=== PATIENT | female | born 1965 | race Two or more races ===

== ENCOUNTER 2019-04-09 15:47 | Inpatient (IN) | payer BC, OTHER ==
--- NOTE | 2019-04-09 15:55 | PDOC ---
Rapid Medical Evaluation Time Seen by Provider: 04/09/19 15:49 Medical Evaluation: Allergies Allergy/AdvReac Type Severity Reaction Status Date / Time No Known Allergies Allergy Verified 07/04/16 10:11 04/09/19 15:49 I have performed a brief in-person evaluation of this patient. The patient presents with a chief complaint of: Sent in by PMD for BP of 190/ 110 in office. Stopped taking rx meds > 1 yr ago on her own. Has been using home remedies instead. Given a dose of ? amlodipine in office today. Pt states she was sent in for CT scan of her head though reasons unclear as pt denies DANIELSON, dizziness, visual changes, focal weakness, CP or SOB. Only reports mild R ear clogging sensation on and off Pertinent physical exam findings:BP 230/130, pt well ezequiel and in NAD w/ no focal deficits I have ordered the following: labs r/o EOD, will defer any neuroimaging to ED provider The patient will proceed to the ED for further evaluation. Discharge Disposition - Diagnosis Elevated blood pressure reading - Referrals - Patient Instructions - Post Discharge Activity
--- NOTE | 2019-04-09 16:25 | PDOC ---
History of Present Illness - General Chief Complaint: Blood Pressure Problem Stated Complaint: PCP REFERRED Time Seen by Provider: 04/09/19 15:49 History Source: Patient Exam Limitations: No Limitations - History of Present Illness Initial Comments: 04/09/19 16:09 [id number] with h/o HTN who was referred to the ED from her PCP for a BP of 190/110 in the outpatient clinic today. The patient states that she stopped taking her home medications over a year ago because she did not want to be taking a pill for the rest of her life, and she wanted to try holistic methods instead. She notes mild right ear discomfort like pressure/pain today for the past 2 hours. She had a similar left sided ear pain a week ago which was accompanied by a head -spinning dizziness which resolved spontaneously. She does not get headaches or vertigo like this normally. Her PCP ([place]) gave amlodipine in the office per the patient's report and also sent a prescription to the patient's pharmacy , but also wanted her to come into the ED for evaluation of her symptoms in the setting of the BP. The patient denies f/c/n/v/d/c, chest pain, palpitations, SOB , n/t/w focally, vision changes, or other symptoms. Past History - Past Medical History Allergies/Adverse Reactions: Allergies Allergy/AdvReac Type Severity Reaction Status Date / Time No Known Allergies Allergy Verified 04/09/19 15:52 Home Medications: Ambulatory Orders NK [No Known Home Medication] 04/09/19 HTN: Yes - Suicide/Smoking/Psychosocial Hx Smoking History: Never smoked Hx Alcohol Use: No Drug/Substance Use Hx: No Review of Systems - Review of Systems Able to Perform ROS?: Yes Comments:: 04/09/19 16:25 GEN: no fever, chills, malaise, generalized weakness, or weight change HEENT: ear pain, no sore throat, vision change, or eye pain CV: no chest pain, palpitations, lightheadedness, syncope, or edema RESP: no cough, wheezing, or SOB GI: no abdominal pain, nausea, vomiting, diarrhea, constipation, or white/black/ bloody stool : no dysuria, hematuria, incontinence, retention, bleeding, or discharge MSK: no neck/back pain, muscle weakness/pain, or joint swelling/pain NEURO: headache, vertigo, no seizure, numbness, tingling, or focal weakness PSYCH: no substance use, no behavior change SKIN: no jaundice, no rash ROS otherwise negative except as noted in HPI *Physical Exam - Vital Signs Last Vital Signs Temp Pulse Resp BP Pulse Ox 107 H 18 231/130 H 100 04/09/19 15:54 04/09/19 15:54 04/09/19 15:54 04/09/19 15:54 - Physical Exam Comments: 04/09/19 16:36 GENERAL: nontoxic and well-appearing, A/Ox4, no distress, answers questions appropriately, comfortable appearing, pleasant HEENT: PERRLA, EOMI, moist mucous membranes, EACs and TMs clear without bulging NECK/BACK: no midline ttp, no spinal stepoff or deformity, no hematoma, full ROM , neck supple CARDIOVASCULAR: regular rate/rhythm, normal S1S2, no MGR, strong peripheral pulses, capillary refill <2 seconds, extremities wwp, no edema LUNGS/RESPIRATORY: no respiratory distress, CTAB GI/ABDOMEN: symmetric qwdh-to-svda, normoactive BS, soft, no ttp, no midline pulsatile masses : no CVA tenderness EXTREMITIES: no muscle atrophy, no acute deformity, no edema SKIN: warm and dry, no pallor, no jaundice, no rash, no bruising, no skin breakdown, no cuts, no lesions NEUROLOGICAL: GCS 15, CN II-XII grossly intact, 5/5 strength proximally and distally, no facial droop, seen walking into exam room with normal gait ED Treatment Course - LABORATORY CBC & Chemistry Diagram: 04/09/19 16:21 04/09/19 16:21 Medical Decision Making - Medical Decision Making 04/09/19 16:45 53YOF with h/o HTN non-adherent to Rx who p/w DANIELSON and high blood pressure. Initial Vital Signs Pulse Resp BP Pulse Ox 107 H 18 231/130 H 100 04/09/19 15:54 04/09/19 15:54 04/09/19 15:54 04/09/19 15:54 Exam: As noted in Physical Exam section. DDX IBNLT: primary (essential) HTN, renal disease, medications (e.g. OCPs, NSAIDs, antidepressants, steroids), hypercortisolism ([place] syndrome), primary hyperaldosteronism ([place] syndrome), pheochromocytoma, hyper/ hypothyroidism, hyperparathyroidism, coarctation of aorta, obstructive sleep apnea, etc. Main emergency concern is to r/o hypertensive emergency. W/U ordered: CBC, CMP, trop, UA, EKG, HCT TX ordered: for HTN emergency, use IV nitroprusside, labetalol, or nicardipine Patient's DANIELSON may be a manifestation of hypertensive emergency and therefore she needs HCT. EKG: Reviewed; results as noted in ECG Review section. CT/HEAD CT WITHOUT CONTRAST Cranial CT without contrast Clinical information: headache, high blood pressure Multiplanar imaging was performed. Intravenous contrast was not administered. No prior imaging studies are available at this facility for direct comparison. No intraparenchymal hemorrhage is seen. There is no CT evidence of acute subarachnoid hemorrhage. Correlate clinically. No extra-axial fluid collection is noted. There is no obvious mass lesion on noncontrast imaging. Mild nonspecific bilateral frontoparietal subcortical and periventricular white matter hypodensity which could be on the basis of etiologies such as chronic microvascular ischemic changes and/or hypertensive encephalopathy. Age-appropriate involutional changes are seen with minimal ventricular dilatation. The calvarium appears intact. The partially imaged paranasal sinuses demonstrate no opacification. Impression: Mild nonspecific periventricular and subcortical white matter low-attenuation is noted which may be on the basis of chronic microvascular ischemic changes and/or hypertensive encephalopathy. 04/09/19 17:44 Repeat BP 256/134. Laboratory Tests 04/09/19 04/09/19 04/09/19 14:40 16:21 16:21 WBC 7.8 RBC 5.15 Hgb 12.8 Hct 38.9 MCV 75.4 L MCH 24.8 L MCHC 32.9 RDW 16.2 H Plt Count 193 MPV 10.4 Absolute Neuts (auto) 5.4 Neutrophils % 70.0 Lymphocytes % 21.2 Monocytes % 6.4 Eosinophils % 1.6 Basophils % 0.8 Nucleated RBC % 0 Sodium 142 Potassium 3.7 Chloride 105 Carbon Dioxide 31 Anion Gap 6 L BUN 12.0 Creatinine 1.3 Est GFR (CKD-EPI)AfAm 54.62 Est GFR (CKD-EPI)NonAf 47.13 Random Glucose 132 H Calcium 9.0 Total Bilirubin 0.3 AST 22 ALT 12 L Alkaline Phosphatase 121 H Troponin I < 0.02 Total Protein 7.6 Albumin 3.8 Urine Color Yellow Urine Appearance Clear Urine pH 7.0 Ur Specific [place] 1.002 L Urine Protein Negative Urine Glucose (UA) Negative Urine Ketones Negative Urine Blood Negative Urine Nitrite Negative Urine Bilirubin Negative Urine Urobilinogen 0.2 Ur Leukocyte Esterase Negative The Pt is unsafe for discharge at this time. They require further hospital observation, workup, and treatment. Microblog sent to [facility] for admission. Blank Decision to Admit order is placed per ED protocol. Consults ordered to Drs. Arora and Mireya. Spoke with Dr. Gomes and ordered MRI brain without contrast at his request. Spoke with ICU (Trista Stuart) and she is speaking with Dr. Arora. Patient will be going to ICU for nicardipine drip. 04/09/19 19:37 I spoke with Baron Bruno; patient admitted to Dr. Posadas. *DC/Admit/Observation/Transfer Diagnosis at time of Disposition: Hypertensive emergency - Discharge Dispostion Condition at time of disposition: Guarded Decision to Admit order: Yes - Referrals - Patient Instructions - Post Discharge Activity
[2019-04-09 16:36] LABS: BASO % 0.8 % (0-2.0); EOS % 1.6 % (0-4.5); HEMATOCRIT 38.9 % (32.4-45.2); HEMOGLOBIN 12.8 GM/dL (10.7-15.3); LYMPH % 21.2 % (8-40); MCH 24.8 pg (25.7-33.7); MCHC 32.9 g/dl (32.0-36.0); MEAN CELL VOLUME 75.4 fl (80-96); MEAN PLT VOLUME 10.4 fl (7.5-11.1); MONO % 6.4 % (3.8-10.2); PLATELET COUNT 193 K/MM3 (134-434); RBC 5.15 M/mm3 (3.60-5.2); RDW 16.2 % (11.6-15.6); WHITE BLOOD COUNT 7.8 K/mm3 (4.0-10.0)
[2019-04-09 17:17] LABS: ALBUMIN 3.8 g/dl (3.4-5.0); ALK PHOS 121 U/L (45-117); ANION GAP 6 MMOL/L (8-16); BILIRUBIN,TOTAL 0.3 mg/dL (0.2-1); CHLORIDE 105 mmol/L (98-107); CO2 31 mmol/L (21-32); CREATININE 1.3 mg/dL (0.55-1.3); GLUCOSE,RANDOM 132 mg/dL (74-106); POTASSIUM 3.7 mmol/L (3.5-5.1); SGOT/AST 22 U/L (15-37); SGPT/ALT 12 U/L (13-61); SODIUM 142 mmol/L (136-145); TOT PROT 7.6 g/dl (6.4-8.2)
[2019-04-09 17:34] LABS: URINE APPEARANCE CLEAR; URINE BILIRUBIN NEGATIVE (NEGATIVE); URINE COLOR YELLOW; URINE GLUCOSE (UA) NEGATIVE (NEGATIVE); URINE KETONE NEGATIVE (NEGATIVE); URINE LEUK ESTERASE NEGATIVE (NEGATIVE); URINE NITRITE NEGATIVE (NEGATIVE); URINE PROTEIN NEGATIVE (NEGATIVE); URINE UROBILINOGEN 0.2 mg/dL (0.2-1.0)
[2019-04-09] MEDS ORDERED: NICARDIPINE 25 MG in DEXTROSE 5%-WATER - 240 ML IVPB SCH (18:00)
[2019-04-09] MEDS ORDERED: niCARdipine HCL 25 MG/10 ML AMPUL IVPB ONE (18:08)
--- NOTE | 2019-04-09 18:08 | PDOC ---
Documentation entered by Sal Soto SCRIBE, acting as scribe for Shruthi Dailey MD. Shruthi Dailey MD: This documentation has been prepared by the Charles sharp Daniel, SCRIBE, under my direction and personally reviewed by me in its entirety. I confirm that the documentation accurately reflects all work, treatment, procedures, and medical decision making performed by me. Attending Attestation - Resident Resident Name: Lisa Alex - ED Attending Attestation I have performed the following: I have examined & evaluated the patient, The case was reviewed & discussed with the resident, I agree w/resident's findings & plan, Exceptions are as noted - HPI HPI: 04/09/19 16:54 The patient is a 53 year old female with a past medical history of HTN (patient non adherent to meds, self dced 1 year ago) here today for evaluation of high blood pressure and headache. The patient reports that she went to her PCPs office and had a systolic pressure in the 190s. Patients PCP gave her amlodipine 5mg at 12pm and told her to come to the ER. She also notes a right sided aching intermittent headache around the right ear that has been going on for the past 6 days. She also reports having vertigo symptoms 1 week ago that have resolved. Patient denies lightheadedness, focal weakness/numbness. Denies fever, chills. Denies chest pain, shortness of breath. Denies nausea, vomiting, diarrhea, abdominal pain. Allergies: NKA - Physicial Exam PE: 04/09/19 16:55 GENERAL: Awake, alert, and fully oriented, appears uncomfortable, holding her head on the right side HEAD: No signs of trauma EYES: PERRLA, EOMI, sclera anicteric, conjunctiva clear ENT: Auricles normal inspection, hearing grossly normal, nares patent, oropharynx clear without exudates. Moist mucosa NECK: Normal ROM, supple, no lymphadenopathy, JVD, or masses LUNGS: Breath sounds equal, clear to auscultation bilaterally. No wheezes, and no crackles HEART: Regular rate and rhythm, normal S1 and S2, no murmurs, rubs or gallops ABDOMEN: Soft, nontender, normoactive bowel sounds. No guarding, no rebound. No masses EXTREMITIES: Normal range of motion, no edema. No clubbing or cyanosis. No cords , erythema, or tenderness BACK: No midline spinal tenderness in cervical/thoracic/lumbar region NEUROLOGICAL: Normal speech, cranial nerves intact, negative pronator drift, 5/ 5 strength in all 4 extremities, normal sensation to light touch in all 4 extremities, normal cerebellar exam, normal gait, normal reflexes and tone SKIN: Warm, Dry, normal turgor, no rashes or lesions noted. - Medical Decision Making 04/09/19 18:01 53yo F presents to the ED with high blood pressure Initial BP here after amlodipine 231/130, on my evaluation after checking twice , BP is 256/134 b/l No CP, abd pain, or SOB Only complaint is headache Labs/UA wnl EKG with TW changes, no previous EKG to compare CTH with concern for possible hypertensive encephalopathy As such, concern for hypertensive emergency Plan to start cardene gtt, discuss with neuro/cards, admit to ICU Goal to decrease BP by 10-20% within first hour of treatment and no more than 25 % by end of 24hrs of treatment 04/09/19 19:00 Pt accepted to ICU Dr. Overton will see pt. Dr. Gomes recommends MRI which has been ordered Hospitalist has been paged for admission, awaiting call back BP 220/100, will keep cardene gtt at 2.5mg/hr as this is already a 10-20% drop Pt is clinically stable Case has been signed out to overnight attending at the bedside, pending is admission to hospitalist Heart Score/ECG Review #1 04/09/19 18:06 Twelve-lead EKG was performed and reviewed by me. Normal sinus rhythm, rate 82. Normal axis. No ST elevations. T wave inversions in leads 3, aVF and V6. +LVH. No previous EKGs to compare.
--- NOTE | 2019-04-09 18:42 | CON.CARD ---
Consult Consult Specialty:: Cardiology Referred by:: Hospitalist Medicine Reason for Consultation:: Hypertensive urgency - History of Present Illness Chief Complaint: Headache History of Present Illness: The patient is a 53 year old female with a past medical history of HTN (patient non adherent to meds, self dced 1 year ago and taking homeopathic remedies) here today for evaluation of high blood pressure and headache. The patient reports that she went to her PCPs office and had a systolic pressure in the 190 s. Patients PCP gave her amlodipine 5mg at 12pm and told her to come to the ER. She also notes a right sided aching intermittent headache around the right ear that has been going on for the past 6 days. She also reports having vertigo symptoms 1 week ago that have resolved. Patient denies lightheadedness, focal weakness/numbness, chest pain, shortness of breath, true syncope, orthopnea, PND , LE edema, salt intake, NSAID use. - History Source History Provided By: Patient Limitations to Obtaining History: No Limitations - Past Medical History Cardio/Vascular: Yes: HTN - Alcohol/Substance Use Hx Alcohol Use: No - Smoking History Smoking history: Never smoked Home Medications - Allergies Allergies/Adverse Reactions: Allergies Allergy/AdvReac Type Severity Reaction Status Date / Time No Known Allergies Allergy Verified 04/09/19 15:52 - Home Medications Home Medications: Ambulatory Orders NK [No Known Home Medication] 04/09/19 Review of Systems - Review of Systems Neurological: reports: Headache Vital Signs: Vital Signs Temperature Pulse Rate 107 H 04/09/19 18:36 Respiratory Rate 17 04/09/19 18:29 Blood Pressure 227/100 H 04/09/19 18:36 O2 Sat by Pulse Oximetry (%) 98 04/09/19 18:29 Constitutional: Yes: No Distress, Calm Neck: Yes: Supple Respiratory: Yes: Regular, CTA Bilaterally Gastrointestinal: Yes: Normal Bowel Sounds, Soft Cardiovascular: Yes: Regular Rate and Rhythm JVD: No Carotid Bruit: No Heart Sounds: Yes: S1, S2 Edema: No - Other Data Labs, Other Data: CBC, BMP 04/09/19 16:21 04/09/19 16:21 Troponin, BNP 04/09/19 16:21 Troponin I < 0.02 Troponin, BNP 04/09/19 16:21 Troponin I < 0.02 NSR @ 82 LAE, LVH with repol abnl Echo: Pending Ejection Fraction %: LVEF > or = 40 % Imaging - Results Cat Scan: Report Reviewed (HCT: SVID vs HTN encephelopathy) Problem List - Problems (1) Hypertensive urgency Code(s): I16.0 - HYPERTENSIVE URGENCY (2) Hypertensive heart disease Code(s): I11.9 - HYPERTENSIVE HEART DISEASE WITHOUT HEART FAILURE Qualifiers: Heart failure presence: without heart failure Qualified Code(s): I11.9 - Hypertensive heart disease without heart failure (3) CKD (chronic kidney disease) Code(s): N18.9 - CHRONIC KIDNEY DISEASE, UNSPECIFIED Qualifiers: Chronic kidney disease stage: stage 2 (mild) Qualified Code(s): N18.2 - Chronic kidney disease, stage 2 (mild) (4) Hypertensive encephalopathy Code(s): I67.4 - HYPERTENSIVE ENCEPHALOPATHY Assessment/Plan 1. Hypertensive urgency and encephelopathy due to medication noncompliance 2. Hypertensive heart disease w/o failure 3. CKD P:1. Started on Cardene gtt, agree with carvedilol 6.25 bid and diovan 160 qd with uptitration as tolerated 2. Echocardiogram to assess ventricular and valve fxn 3. UA neg for proteinuria, check TSH 4. Emphasized importance of medication compliance 5. Thank you for consultative opportunity
--- NOTE | 2019-04-09 19:21 | PN ---
Teaching Attending Note Name of Resident: Baron Bruno ATTENDING PHYSICIAN STATEMENT I saw and evaluated the patient. I reviewed the resident's note and discussed the case with the resident. I agree with the resident's findings and plan as documented. SUBJECTIVE: Patient is a 53 year old woman with PMH of HTN (patient nonadherent to medications and stopped them 1 year ago) presents with high blood pressure and headache. The patient reports that she went to her PCPs office and had a systolic pressure in the 190s. Patients PCP gave her amlodipine 5mg at 12pm and told her to come to the ER. She also notes a right sided aching intermittent headache around the right ear that has been going on for the past 6 days. She also reports having vertigo symptoms 1 week ago that have resolved. Patient denies lightheadedness, focal weakness/numbness. Denies fever, chills. Denies chest pain, shortness of breath. Denies nausea, vomiting, diarrhea, abdominal pain. OBJECTIVE: Alert Vital Signs Period Temp Pulse Resp BP Sys/Cabrera Pulse Ox Last 24 Hr 104-107 16-18 227-231/100-130 98-100 HEENT: No Jaundice, eye redness or discharge, PERRLA, EOMI. No papilledema. Normocephalic, atraumatic. External ears are normal and hearing is grossly intact. No nasal discharge. Neck: Supple, nontender. No palpable adenopathy or thyromegaly. No JVD Chest: Good effort. Clear to auscultation and percussion. Heart: Regular. No S3, rub or murmur Abdomen: Not distended, soft, nontender and no HSM. No rebound or guarding. Normal bowel sounds. Ext: Peripheral pulses intact. No leg edema. Skin: Warm and dry. No petechiae, rash or ecchymosis. Neuro: Alert. Oriented x3. CN 2-12 grossly intact. Sensation grossly intact in all four extremities and DTR are symmetric. Psych: Appropriate mood and affect. Good insight. Current Medications Generic Name Dose Route Start Last Admin Trade Name Freq PRN Reason Stop Dose Admin Carvedilol 6.25 mg 04/09/19 22:00 Coreg - PO BID [place] Chlorhexidine Gluconate 1 applic 04/09/19 22:00 Hibiclens For Decolonization - TP HS [place] Heparin Sodium (Porcine) 5,000 unit 04/09/19 19:00 Heparin - SQ TID [place] Nicardipine HCl 25 mg/ 250 mls @ 25 mls/hr 04/09/19 18:00 04/09/19 18:36 Dextrose IVPB 2.5 mg/hr TITR [place] 25 mls/hr Administration Protocol 2.5 MG/HR Mupirocin 1 applic 04/09/19 22:00 Bactroban Ointment (For Decolonization) - NS 04/14/19 21:59 BID [place] Valsartan 160 mg 04/09/19 18:55 Diovan - PO DAILY [facility] Home Medications Medication Instructions Recorded NK [No Known Home Medication] 04/09/19 Abnormal Lab Results 04/09/19 04/09/19 04/09/19 14:40 16:21 16:21 MCV 75.4 L MCH 24.8 L RDW 16.2 H Anion Gap 6 L Random Glucose 132 H ALT 12 L Alkaline Phosphatase 121 H Ur Specific [place] 1.002 L ASSESSMENT AND PLAN: 1. Hypertensive Urgency - Noncontrast head CT scan showed "Mild nonspecific periventricular and subcortical white matter low-attenuation is noted which may be on the basis of chronic microvascular ischemic changes and/or hypertensive encephalopathy". EKG showed normal sinus rhythm, rate [address] elevations. T wave inversions in leads III, aVF and V6; LAE and LVH. No previous EKGs to compare. Initial troponin is negative. Will repeat EKG and troponin and get brain MRI and ECHO. Patient counseled on the importance of adherence to treatment regimen. Will refer to PCP or nurse first assist for outpatient workup to rule out secondary hypertension. Patient started on Nicardipine drip in the ER as Coreg 6.25 mg q 12 hours and Diovan 160 mg qd. Will avoid rapid drop in BP within the first 24 hours. Will subsequently add HCTZ 12.5 mg po qd and revise regimen to ensure good BP control. Nonpharmacologic measures to control hypertension like weight loss, salt restriction and exercise discussed. 2. DVT prophylaxis - Lovenox 40 mg SQ q 24 hours. 3. Advance directives - Full code.
--- NOTE | 2019-04-09 19:27 | CONSULT ---
Consultation: REQUESTING PROVIDER: CONSULT REQUEST: We have been asked to medically evaluate this patient for ( specify). HISTORY OF PRESENT ILLNESS: 53 y/o female with PMH of HTN (non compliant with medications ) presents to the ED from her PCP's office due to high blood pressure- patient states that for the past 6 days she has been having a slight headache and dizziness, and she had an episode of vomiting on Friday, she thought it was vertigo as she had been having some inner ear issues as well. Today she went to her PCP where her BP was found to be in systolics of 190's, she was given 5mg of amlodipine and told to come to the ER. When she arrived at the ER her pressure was found to be 230/130, she was started on a Cardene drip. she is aware that her pressures have been elevated and has not taken any medications in over a year as she wanted to go the more holistic route- she does not measure her pressures regularly. They have been high in the past, however, never this high. she denies any recent illnesses, no recent travel or any sick contacts. EKG: t wave inversions in inferior leads; LVH with repolarization Head CT: Mild nonspecific periventricular and subcortical white matter low-attenuation is noted which may be on the basis of chronic microvascular ischemic changes and/or hypertensive encephalopathy. REVIEW OF SYSTEMS: CONSTITUTIONAL: Absent: fever, chills, diaphoresis, generalized weakness, malaise, loss of appetite, weight change HEENT: Absent: rhinorrhea, nasal congestion, throat pain, throat swelling, difficulty swallowing, mouth swelling, ear pain, eye pain, visual changes CARDIOVASCULAR: Absent: chest pain, syncope, palpitations, irregular heart rate, lightheadedness , peripheral edema RESPIRATORY: Absent: cough, shortness of breath, dyspnea with exertion, orthopnea, wheezing, stridor, hemoptysis GASTROINTESTINAL: Absent: abdominal pain, abdominal distension, nausea, vomiting, diarrhea, constipation, melena, hematochezia GENITOURINARY: Absent: dysuria, frequency, urgency, hesitancy, hematuria, flank pain, genital pain MUSCULOSKELETAL: Absent: myalgia, arthralgia, joint swelling, back pain, neck pain SKIN: Absent: rash, itching, pallor HEMATOLOGIC/IMMUNOLOGIC: Absent: easy bleeding, easy bruising, lymphadenopathy, frequent infections ENDOCRINE: Absent: unexplained weight gain, unexplained weight loss, heat intolerance, cold intolerance NEUROLOGIC: Present:headache Absent: focal weakness or paresthesias, dizziness, unsteady gait, seizure, mental status changes, bladder or bowel incontinence PSYCHIATRIC: Absent: anxiety, depression, suicidal or homicidal ideation, hallucinations. PHYSICAL EXAMINATION Vital Signs - 24 hr 04/09/19 04/09/19 04/09/19 15:54 17:01 18:29 Pulse Rate 107 H Pulse Rate [ 107 H 104 H Apical] Respiratory 18 16 17 Rate Blood Pressure 231/130 H Blood Pressure 231/130 H 227/100 H [Right Arm] O2 Sat by Pulse 100 98 Oximetry (%) 04/09/19 18:36 Pulse Rate 107 H Pulse Rate [ Apical] Respiratory Rate Blood Pressure 227/100 H Blood Pressure [Right Arm] O2 Sat by Pulse Oximetry (%) GENERAL: Awake, alert, and fully oriented, in no acute distress. EYES: PEERLA; EOMI; no scleral icterus NECK: no JVD; no lymphadenopathy LUNGS: CTA B/L; no rales, rhonchi or whezing HEART: Regular rate and rhythm, normal S1 and S2 without murmur, rub or gallop. ABDOMEN: soft; NT/ND +BS in all 4 quadrants . MUSCULOSKELETAL: Normal range of motion at all joints. No bony deformities or tenderness. No CVA tenderness. EXTREMITIES: warm; well-perfused no clubbing/cyanosis or edema NEUROLOGICAL: Cranial nerves II-XII intact. Normal speech. no facial asymmetry ; 5/5 strength UE/LE B/L sensation intact throughout PSYCHIATRIC: Cooperative. Good eye contact. Appropriate mood and affect. SKIN: Warm, dry, normal turgor, no rashes or lesions noted. Laboratory Results - last 24 hr 04/09/19 04/09/19 04/09/19 14:40 16:21 16:21 WBC 7.8 RBC 5.15 Hgb 12.8 Hct 38.9 MCV 75.4 L MCH 24.8 L MCHC 32.9 RDW 16.2 H Plt Count 193 MPV 10.4 Absolute Neuts (auto) 5.4 Neutrophils % 70.0 Lymphocytes % 21.2 Monocytes % 6.4 Eosinophils % 1.6 Basophils % 0.8 Nucleated RBC % 0 Sodium 142 Potassium 3.7 Chloride 105 Carbon Dioxide 31 Anion Gap 6 L BUN 12.0 Creatinine 1.3 Est GFR (CKD-EPI)AfAm 54.62 Est GFR (CKD-EPI)NonAf 47.13 Random Glucose 132 H Calcium 9.0 Total Bilirubin 0.3 AST 22 ALT 12 L Alkaline Phosphatase 121 H Troponin I < 0.02 Total Protein 7.6 Albumin 3.8 Urine Color Yellow Urine Appearance Clear Urine pH 7.0 Ur Specific [place] 1.002 L Urine Protein Negative Urine Glucose (UA) Negative Urine Ketones Negative Urine Blood Negative Urine Nitrite Negative Urine Bilirubin Negative Urine Urobilinogen 0.2 Ur Leukocyte Esterase Negative Active Medications Generic Name Dose Route Start Last Admin Trade Name Freq PRN Reason Stop Dose Admin Carvedilol 6.25 mg 04/09/19 22:00 Coreg - PO BID BALBINA Chlorhexidine Gluconate 1 applic 04/09/19 22:00 Hibiclens For Decolonization - TP HS BALB[place] Heparin Sodium (Porcine) 5,000 unit 04/09/19 19:00 Heparin - SQ Q8H-IV BALBINA Nicardipine HCl 25 mg/ 250 mls @ 25 mls/hr 04/09/19 18:00 04/09/19 18:36 Dextrose IVPB 2.5 mg/hr TITR BALBINA 25 mls/hr Administration Protocol 2.5 MG/HR Mupirocin 1 applic 04/09/19 22:00 Bactroban Ointment (For Decolonization) - NS 04/14/19 21:59 BID BALBINA Valsartan 160 mg 04/09/19 18:55 Diovan - PO DAILY BALB[place] ASSESSMENT/PLAN: 53 y/o female with PMH of HTN (uncontrolled due to medication non complicance) presented to the ED after being sent from her PCP due to high blood pressure, was found to have a BP of 230/130 on arrival #Neuro head CT showed nonspecific periventricular and subcortical white matter low- attenuation either on basis of chronic microvascular changes v. hypertensive encephalopathy -neuro exam normal CN 2-12 intact strength and sensation intact throughout -will do frequent neuro checks -dr ocampo was consulted from the ED #Cardiovascular patient came in with hypertensive emergency 2/2 medication non-compliance -started on cardene drip in addition started on coreg 12.5 BID and diovan 160 daily -dr. larios consulted; recs appreciated -will not drop pressure below 25% in the first 24 hours -echo ordered -u/a and microalbumin -TSH ordered -stressed importance of medication compliance #GI no abdominal complaints; no more vomiting episodes -no indication for PPI at this moment #Pulmonary stable; no issues -monitor O2 saturations F/E/N not on fluids monitor electrolytes sodium-controlled diet Dispo: We will continue to follow the patient. Thank you for this consultative opportunity. Visit type - Emergency Visit Emergency Visit: Yes Care time: The patient presented to the Emergency Department on the above date and was hospitalized for further evaluation of their emergent condition. - New Patient This patient is new to me today: Yes Date on this admission: 04/09/19 - Critical Care Critical Care patient: Yes Total Critical Care Time (in minutes): 35 Critical Care Statement: The care of this patient involved high complexity decision making to prevent further life threatening deterioration of the patient 's condition and/or to evaluate & treat vital organ system(s) failure or risk of failure.
[2019-04-09] MEDS: VALSARTAN 160 MG TABLET (UD) PO SCH (19:50)
[2019-04-09] MEDS: HEPARIN NA (PORCINE) 5,000 UNITS/ML 1ML VIAL SQ SCH ×2 (19:50→23:59)
[2019-04-09] MEDS ORDERED: VALSARTAN 80 MG TABLET (UD) ONE (19:57)
[2019-04-09] MEDS ORDERED: HEPARIN NA (PORCINE) 5,000 UNITS/ML 1ML VIAL ONE (19:58)
--- NOTE | 2019-04-09 20:27 | HP ---
CHIEF COMPLAINT: Elevated Blood pressure. Sent by PCP. PCP: Dr Le Singleton HISTORY OF PRESENT ILLNESS: Pt is a 53 y/o F with a significant past medical history of HTN who presented to [facility] at the behest of her PMD due to severely elevated blood pressure( 190/ 110). Pt states that this past Friday she began to experience an episode of dizziness w/ associated nausea and vomiting. Pt states she was in her home when this episode occurred. Pt went to rest and woke up shortly afterwards and still was experiencing dizziness. Pt states she drank water with lemon, hoping this would assuage her symptoms. Subsequently, the following /Friday, pt then began to experience a pain in her right ear. Pt denies any ringing sensation. Pt states she has been prescribed antihypertensive medications in the past however did not want to take them as she "worried about the side- effects of the medications.". Pt states she takes Garlic w/ parsley that she purchased from a pharmacy to help with her blood pressure. Denies ever experiencing a similar episode in the past. Denies chest pain, shortness of breath, LOC, or illicit drug use. PMH- HTN FH- Mother and Father-HTN Social Hx- Denies Alcohol or Tobacco use. Denies illicit drug use. Surg Hx- Denies ER course was notable for: (1) Cardine Drip (2) Head CT--> Mild nonspecific bilateral frontoparietal subcortical and periventricular white matter hypodensity which could be on the basis of etiologies such as chronic microvascular ischemic changes and/or hypertensive encephalopathy. (3) BP--> 256/134 HOME MEDICATIONS: Home Medications Medication Instructions Recorded NK [No Known Home Medication] 04/09/19 REVIEW OF SYSTEMS CONSTITUTIONAL: PRESENT Vomiting HEENT: Absent: rhinorrhea, nasal congestion, throat pain, throat swelling, difficulty swallowing, mouth swelling, ear pain, eye pain, visual changes CARDIOVASCULAR: Absent: chest pain, syncope, palpitations, irregular heart rate, lightheadedness , peripheral edema RESPIRATORY: Absent: cough, shortness of breath, dyspnea with exertion, orthopnea, wheezing, stridor, hemoptysis GASTROINTESTINAL: Absent: abdominal pain, abdominal distension, nausea, vomiting, diarrhea, constipation, melena, hematochezia GENITOURINARY: Absent: dysuria, frequency, urgency, hesitancy, hematuria, flank pain, genital pain MUSCULOSKELETAL: Absent: myalgia, arthralgia, joint swelling, back pain, neck pain SKIN: Absent: rash, itching, pallor HEMATOLOGIC/IMMUNOLOGIC: Absent: easy bleeding, easy bruising, lymphadenopathy, frequent infections ENDOCRINE: Absent: unexplained weight gain, unexplained weight loss, heat intolerance, cold intolerance NEUROLOGIC: PRESENT headache,dizziness PSYCHIATRIC: Absent: anxiety, depression, suicidal or homicidal ideation, hallucinations. PHYSICAL EXAMINATION Vital Signs - 24 hr 04/09/19 04/09/19 04/09/19 15:54 17:01 18:29 Temperature Pulse Rate 107 H Pulse Rate [ 107 H 104 H Apical] Respiratory 18 16 17 Rate Blood Pressure 231/130 H Blood Pressure 231/130 H 227/100 H [Right Arm] O2 Sat by Pulse 100 98 Oximetry (%) 04/09/19 04/09/19 18:36 19:50 Temperature 98.0 F Pulse Rate 107 H Pulse Rate [ 112 H Apical] Respiratory 20 Rate Blood Pressure 227/100 H Blood Pressure 215/98 H [Right Arm] O2 Sat by Pulse 100 Oximetry (%) GENERAL: NAD HEAD: Normal with no signs of trauma. EYES: EOMI, PERRLA, Sclera Clear EARS, NOSE, THROAT: MMM NECK: Normal range of motion, supple without lymphadenopathy, JVD, or masses. LUNGS: CTAB HEART: RRR ABDOMEN: Soft, NDNT MUSCULOSKELETAL: FROM throughout LOWER EXTREMITIES: No CCE NEUROLOGICAL: Cranial nerves II-XII intact. Normal speech. PSYCHIATRIC: Cooperative. Good eye contact. Appropriate mood and affect. SKIN: Warm, dry, normal turgor, no rashes or lesions noted, normal capillary refill. Laboratory Results - last 24 hr 04/09/19 04/09/19 04/09/19 14:40 16:21 16:21 WBC 7.8 RBC 5.15 Hgb 12.8 Hct 38.9 MCV 75.4 L MCH 24.8 L MCHC 32.9 RDW 16.2 H Plt Count 193 MPV 10.4 Absolute Neuts (auto) 5.4 Neutrophils % 70.0 Lymphocytes % 21.2 Monocytes % 6.4 Eosinophils % 1.6 Basophils % 0.8 Nucleated RBC % 0 Sodium 142 Potassium 3.7 Chloride 105 Carbon Dioxide 31 Anion Gap 6 L BUN 12.0 Creatinine 1.3 Est GFR (CKD-EPI)AfAm 54.62 Est GFR (CKD-EPI)NonAf 47.13 Random Glucose 132 H Calcium 9.0 Total Bilirubin 0.3 AST 22 ALT 12 L Alkaline Phosphatase 121 H Troponin I < 0.02 Total Protein 7.6 Albumin 3.8 Urine Color Yellow Urine Appearance Clear Urine pH 7.0 Ur Specific [place] 1.002 L Urine Protein Negative Urine Glucose (UA) Negative Urine Ketones Negative Urine Blood Negative Urine Nitrite Negative Urine Bilirubin Negative Urine Urobilinogen 0.2 Ur Leukocyte Esterase Negative ASSESSMENT/PLAN: Pt is a 53 y/o F with a significant past medical history of HTN who presented to [facility] at the behest of her PMD due to severely elevated blood pressure (190/ 110). Pt states that this past Friday she began to experience an episode of dizziness w/ associated nausea and vomiting. #Hypertensive Emergency: -BP 256/134. Pt endorses being noncompliant w/ prescribed antihypertensive medications -Nicardapine gtt started in ED. -Placed on coreg 12.5 BID and diovan 160 daily per Cardiology -Will not drop pressure below 25%-30% in the first 24 hours -Echocardiogram -TSH, Renal sonogram to assess for Renal artery stenosis or Fibromuscular dysplasia - Pt counseled on im,portance of medication compliance. -Dr Gomes on board. Dr Overton on board. -Brain MRI pending #DVT ppx: HEPSQTID #FEN No Fluids Monitor Electrolytes Sodium Controlled Diet #Dispo: ICU Visit type - Emergency Visit Emergency Visit: Yes Care time: The patient presented to the Emergency Department on the above date and was hospitalized for further evaluation of their emergent condition. - New Patient This patient is new to me today: Yes Date on this admission: 04/09/19 - Critical Care Critical Care patient: Yes Total Critical Care Time (in minutes): 35 Critical Care Statement: The care of this patient involved high complexity decision making to prevent further life threatening deterioration of the patient 's condition and/or to evaluate & treat vital organ system(s) failure or risk of failure.
[2019-04-09] MEDS ORDERED: CHLORHEXIDINE GLUCONATE 4% CLEANSER FOR DECOLONIZATION TP SCH (22:00)
--- NOTE | 2019-04-09 22:05 | PDOC ---
*Physical Exam - Vital Signs Last Vital Signs Temp Pulse Resp BP Pulse Ox 98.0 F 112 H 20 215/98 H 100 04/09/19 19:50 04/09/19 19:50 04/09/19 19:50 04/09/19 19:50 04/09/19 19:50 ED Treatment Course - LABORATORY CBC & Chemistry Diagram: 04/09/19 16:21 04/09/19 16:21 - ADDITIONAL ORDERS Additional order review: Laboratory Results 04/09/19 04/09/19 16:21 14:40 Sodium 142 Potassium 3.7 Chloride 105 Carbon Dioxide 31 Anion Gap 6 L BUN 12.0 Creatinine 1.3 Est GFR (CKD-EPI)AfAm 54.62 Est GFR (CKD-EPI)NonAf 47.13 Random Glucose 132 H Calcium 9.0 Total Bilirubin 0.3 AST 22 ALT 12 L Alkaline Phosphatase 121 H Troponin I < 0.02 Total Protein 7.6 Albumin 3.8 Urine Color Yellow Urine Appearance Clear Urine pH 7.0 Ur Specific [place] 1.002 L Urine Protein Negative Urine Glucose (UA) Negative Urine Ketones Negative Urine Blood Negative Urine Nitrite Negative Urine Bilirubin Negative Urine Urobilinogen 0.2 Ur Leukocyte Esterase Negative 04/09/19 16:21 RBC 5.15 MCV 75.4 L MCHC 32.9 RDW 16.2 H MPV 10.4 Neutrophils % 70.0 Lymphocytes % 21.2 Monocytes % 6.4 Eosinophils % 1.6 Basophils % 0.8 Medical Decision Making - Medical Decision Making 04/09/19 22:04 Patient Name: JOE LATHAM THIS IS A PRELIMINARY REPORT FROM [facility] DATE OF SERVICE: 2019-04-09 20:55:34 IMAGES: [id number] EXAM: MRI brain without contrast HISTORY: Hypertensive emergency COMPARISON: None TECHNIQUE: Axial and sagittal T1, axial T2, axial flair, axial gradient, and diffusion weighted images with postprocessed ADC map imaging of the brain FINDINGS: There is no restricted diffusion. There is no evidence of acute infarction. No acute hemorrhage is seen. There are scattered regions of increased T2/FLAIR signal noted in the white matter likely related to mild chronic small vessel ischemic change. The ventricles and sulci are normal in size, shape, and position. There is no evidence of abnormal intra- or extra-axial fluid collections. No brain mass is seen. There are normal flow voids in the intracranial circulation. THIS DOCUMENT HAS BEEN ELECTRONICALLY SIGNED No signs of microhemorrhages, as per radiologist; grossly normal MRI of the brain for patient this age, as per radiologist. *DC/Admit/Observation/Transfer Diagnosis at time of Disposition: Hypertensive emergency - Discharge Dispostion Condition at time of disposition: Guarded - Referrals - Patient Instructions - Post Discharge Activity
[2019-04-09] MEDS ORDERED: CARVEDILOL 3.125 MG TABLET (FP) ONE (22:22)
[2019-04-09] MEDS: CARVEDILOL 6.25 MG TABLET (FP) PO SCH (22:24)
[2019-04-09 23:07] LABS: URINE APPEARANCE CLEAR; URINE BILIRUBIN NEGATIVE (NEGATIVE); URINE COLOR YELLOW; URINE GLUCOSE (UA) NEGATIVE (NEGATIVE); URINE KETONE NEGATIVE (NEGATIVE); URINE LEUK ESTERASE NEGATIVE (NEGATIVE); URINE NITRITE NEGATIVE (NEGATIVE); URINE PROTEIN NEGATIVE (NEGATIVE); URINE UROBILINOGEN 0.2 mg/dL (0.2-1.0)
[2019-04-09 23:16] LABS: RATIO URIN PROTEIN/URIN CREAT 0.89 MG/DL
[2019-04-09 23:52] VITALS: BMI 22.3
[2019-04-10] MEDS ORDERED: SODIUM CHLORIDE 500 ML IV STA (02:04)
[2019-04-10 06:28] LABS: HEMATOCRIT 38.3 % (32.4-45.2); HEMOGLOBIN 12.8 GM/dL (10.7-15.3); MCH 25.1 pg (25.7-33.7); MCHC 33.5 g/dl (32.0-36.0); MEAN CELL VOLUME 74.9 fl (80-96); MEAN PLT VOLUME 10.8 fl (7.5-11.1); PLATELET COUNT 199 K/MM3 (134-434); RBC 5.12 M/mm3 (3.60-5.2); RDW 15.9 % (11.6-15.6); WHITE BLOOD COUNT 7.7 K/mm3 (4.0-10.0)
[2019-04-10] MEDS: HEPARIN NA (PORCINE) 5,000 UNITS/ML 1ML VIAL SQ SCH (06:44)
[2019-04-10 06:56] LABS: ALBUMIN 3.8 g/dl (3.4-5.0); BILIRUBIN,TOTAL 0.4 mg/dL (0.2-1); BLOOD UREA NITROGEN 15.1 mg/dL (7-18); CALCIUM 9.2 mg/dL (8.5-10.1); CREATININE 1.3 mg/dL (0.55-1.3); MAGNESIUM 2.5 mg/dL (1.8-2.4); PHOSPHOROUS 4.2 mg/dL (2.5-4.9); POTASSIUM 4.1 mmol/L (3.5-5.1); TOT PROT 7.6 g/dl (6.4-8.2)
[2019-04-10] MEDS ORDERED: PT OWN MED DRAWER 7, Y5N ONE ×3 (08:05→10:05)
[2019-04-10] MEDS: CARVEDILOL 6.25 MG TABLET (FP) PO SCH (09:57)
--- NOTE | 2019-04-10 09:59 | PN ---
Physical Exam: SUBJECTIVE: Patient seen and examined at bedside. No acute complaints. No headache, nausea, vomiting, diarrhea, fevers, chills. Cardene was held during the night. OBJECTIVE: Vital Signs Period Temp Pulse Resp BP Sys/Cabrera Pulse Ox Last 24 Hr 98 F-98.2 F 76-134 14-92 89-231/61-130 98-100 GENERAL: A&Ox3, no acute distress EYES: PERRLA, EOMI ENT: Moist mucus membranes NECK: No JVD LUNGS: CTA, no wheezes HEART: RRR, no murmurs ABDOMEN: Soft, nontender, BS present MUSCULOSKELETAL: No CVA Tenderness EXTREMITIES: 2+ pulses, no edema. NEUROLOGICAL: Cranial nerves II-XII intact. Laboratory Results - last 24 hr 04/09/19 04/09/19 04/09/19 14:40 16:21 16:21 WBC 7.8 RBC 5.15 Hgb 12.8 Hct 38.9 MCV 75.4 L MCH 24.8 L MCHC 32.9 RDW 16.2 H Plt Count 193 MPV 10.4 Absolute Neuts (auto) 5.4 Neutrophils % 70.0 Lymphocytes % 21.2 Monocytes % 6.4 Eosinophils % 1.6 Basophils % 0.8 Nucleated RBC % 0 Sodium 142 Potassium 3.7 Chloride 105 Carbon Dioxide 31 Anion Gap 6 L BUN 12.0 Creatinine 1.3 Est GFR (CKD-EPI)AfAm 54.62 Est GFR (CKD-EPI)NonAf 47.13 Random Glucose 132 H Calcium 9.0 Phosphorus Magnesium Total Bilirubin 0.3 AST 22 ALT 12 L Alkaline Phosphatase 121 H Troponin I < 0.02 Total Protein 7.6 Albumin 3.8 TSH Urine Color Yellow Urine Appearance Clear Urine pH 7.0 Ur Specific [place] 1.002 L Urine Protein Negative Urine Glucose (UA) Negative Urine Ketones Negative Urine Blood Negative Urine Nitrite Negative Urine Bilirubin Negative Urine Urobilinogen 0.2 Ur Leukocyte Esterase Negative U Random Total Protein Urine Creatinine Protein/Creatinin Ratio 04/09/19 04/09/19 04/10/19 22:55 22:55 05:50 WBC 7.7 RBC 5.12 Hgb 12.8 Hct 38.3 MCV 74.9 L MCH 25.1 L MCHC 33.5 RDW 15.9 H Plt Count 199 MPV 10.8 Absolute Neuts (auto) Neutrophils % Lymphocytes % Monocytes % Eosinophils % Basophils % Nucleated RBC % Sodium Potassium Chloride Carbon Dioxide Anion Gap BUN Creatinine Est GFR (CKD-EPI)AfAm Est GFR (CKD-EPI)NonAf Random Glucose Calcium Phosphorus Magnesium Total Bilirubin AST ALT Alkaline Phosphatase Troponin I Total Protein Albumin TSH Urine Color Yellow Urine Appearance Clear Urine pH 8.0 Ur Specific [place] 1.006 L Urine Protein Negative Urine Glucose (UA) Negative Urine Ketones Negative Urine Blood Negative Urine Nitrite Negative Urine Bilirubin Negative Urine Urobilinogen 0.2 Ur Leukocyte Esterase Negative U Random Total Protein 16.1 H Urine Creatinine 18.0 L Protein/Creatinin Ratio 0.890 04/10/19 05:50 WBC RBC Hgb Hct MCV MCH MCHC RDW Plt Count MPV Absolute Neuts (auto) Neutrophils % Lymphocytes % Monocytes % Eosinophils % Basophils % Nucleated RBC % Sodium 139 Potassium 4.1 Chloride 104 Carbon Dioxide 29 Anion Gap 5 L BUN 15.1 Creatinine 1.3 Est GFR (CKD-EPI)AfAm 54.62 Est GFR (CKD-EPI)NonAf 47.13 Random Glucose 120 H Calcium 9.2 Phosphorus 4.2 Magnesium 2.5 H Total Bilirubin 0.4 AST 21 ALT 10 L Alkaline Phosphatase 117 Troponin I Total Protein 7.6 Albumin 3.8 TSH 0.87 Urine Color Urine Appearance Urine pH Ur Specific [place] Urine Protein Urine Glucose (UA) Urine Ketones Urine Blood Urine Nitrite Urine Bilirubin Urine Urobilinogen Ur Leukocyte Esterase U Random Total Protein Urine Creatinine Protein/Creatinin Ratio Active Medications Generic Name Dose Route Start Last Admin Trade Name Freq PRN Reason Stop Dose Admin Carvedilol 6.25 mg 04/09/19 22:00 04/10/19 09:57 Coreg - PO 6.25 mg BID BAL[place]INA Administration Chlorhexidine Gluconate 1 applic 04/09/19 22:00 04/09/19 23:59 Hibiclens For Decolonization - TP Not Given HS BALBINA Heparin Sodium (Porcine) 5,000 unit 04/09/19 19:00 04/10/19 06:44 Heparin - SQ 5,000 unit TID BAL[place] Administration Nicardipine HCl 25 mg/ 250 mls @ 25 mls/hr 04/09/19 18:00 04/09/19 23:00 Dextrose IVPB 0 mg/hr TITR BALBINA 0 mls/hr Titration Protocol 2.5 MG/HR Mupirocin 1 applic 04/10/19 10:00 04/10/19 09:57 Bactroban Ointment (For Decolonization) - NS 04/15/19 09:59 1 applic BID BAL[place] Administration Valsartan 160 mg 04/09/19 18:55 04/09/19 19:50 Diovan - PO 160 mg DAILY [place] Administration ASSESSMENT/PLAN: 53 year old female with PMH of HTN (uncontrolled due to medication non complicance) presented to the ED after being sent from her PCP due to high blood pressure and admitted for the treatment of hypertensive emergency #Neurologic -head CT showed nonspecific periventricular and subcortical white matter low- attenuation either on basis of chronic microvascular changes v. hypertensive encephalopathy -no neurologic deficits -frequent neuro checks were normal #Cardiovascular -blood pressure improved to 133/66 now -cardene drip was held -dr. larios consulted; recs appreciated -f/u echo #Pulmonary stable; no issues -monitor O2 saturations F/E/N not on fluids monitor electrolytes sodium-controlled diet Dispo: can be transferred to med-surg -encourage medication compliance Visit type - Emergency Visit Emergency Visit: No - New Patient This patient is new to me today: No - Critical Care Critical Care patient: No
[2019-04-10] MEDS ORDERED: MUPIROCIN 2% TOPICAL OINTMENT FOR DECOLONIZATION NS SCH ×2 (10:00→22:00)
--- NOTE | 2019-04-10 10:10 | PN ---
Progress Note (short form) - Note Progress Note: Patient is comfortable with no acute distress, no headache or chill, no shortness of breath. Initial Vital Signs Pulse Resp BP Pulse Ox 107 H 18 231/130 H 100 04/09/19 15:54 04/09/19 15:54 04/09/19 15:54 04/09/19 15:54 Vital Signs Temperature 98.3 F 04/10/19 10:06 Pulse Rate 80 04/10/19 10:03 Respiratory Rate 18 04/10/19 10:03 Blood Pressure 196/94 H 04/10/19 10:03 O2 Sat by Pulse Oximetry (%) 100 04/10/19 07:37 GENERAL: The patient is awake, alert, and fully oriented, in no acute distress. HEAD: Normal with no signs of trauma. EYES: PERRL, extraocular movements intact, sclera anicteric, conjunctiva clear. ENT: Ears normal, oropharynx clear without exudates, moist mucous membranes. NECK: Trachea midline, full range of motion, supple. LUNGS: Breath sounds equal, clear to auscultation bilaterally, no wheezes, no crackles, no accessory muscle use. HEART: Regular rate and rhythm, S1, S2 without murmur, rub or gallop. ABDOMEN: Soft, nontender, nondistended, normoactive bowel sounds, no guarding, no rebound, no hepatosplenomegaly, no masses. EXTREMITIES: 2+ pulses, warm, well-perfused, no edema. NEUROLOGICAL: Cranial nerves II through XII grossly intact. Normal speech, gait not observed. PSYCH: Normal mood, normal affect. SKIN: Warm, dry, normal turgor, no rashes or lesions noted CBCD WBC 7.7 K/mm3 (4.0-10.0) 04/10/19 05:50 RBC 5.12 M/mm3 (3.60-5.2) 04/10/19 05:50 Hgb 12.8 GM/dL (10.7-15.3) 04/10/19 05:50 Hct 38.3 % (32.4-45.2) 04/10/19 05:50 MCV 74.9 fl (80-96) L 04/10/19 05:50 MCHC 33.5 g/dl (32.0-36.0) 04/10/19 05:50 RDW 15.9 % (11.6-15.6) H 04/10/19 05:50 Plt Count 199 K/MM3 (134-434) 04/10/19 05:50 MPV 10.8 fl (7.5-11.1) 04/10/19 05:50 CMP Sodium 139 mmol/L (136-145) 04/10/19 05:50 Potassium 4.1 mmol/L (3.5-5.1) 04/10/19 05:50 Chloride 104 mmol/L (98-107) 04/10/19 05:50 Carbon Dioxide 29 mmol/L (21-32) 04/10/19 05:50 Anion Gap 5 MMOL/L (8-16) L 04/10/19 05:50 BUN 15.1 mg/dL (7-18) 04/10/19 05:50 Creatinine 1.3 mg/dL (0.55-1.3) 04/10/19 05:50 Random Glucose 120 mg/dL (74-106) H 04/10/19 05:50 Calcium 9.2 mg/dL (8.5-10.1) 04/10/19 05:50 Total Bilirubin 0.4 mg/dL (0.2-1) 04/10/19 05:50 AST 21 U/L (15-37) 04/10/19 05:50 ALT 10 U/L (13-61) L 04/10/19 05:50 Alkaline Phosphatase 117 U/L (45-117) 04/10/19 05:50 Total Protein 7.6 g/dl (6.4-8.2) 04/10/19 05:50 Albumin 3.8 g/dl (3.4-5.0) 04/10/19 05:50 CARDIAC ENZYMES Troponin I < 0.02 ng/ml (0.00-0.05) 04/09/19 16:21 Current Medications Generic Name Dose Route Start Last Admin Trade Name Amber PRN Reason Stop Dose Admin Carvedilol 6.25 mg 04/09/19 22:00 04/10/19 09:57 Coreg - PO 6.25 mg BID [facility] Administration Chlorhexidine Gluconate 1 applic 04/09/19 22:00 04/09/19 23:59 Hibiclens For Decolonization - TP Not Given HS [facility] Heparin Sodium (Porcine) 5,000 unit 04/09/19 19:00 04/10/19 06:44 Heparin - SQ 5,000 unit TID [facility] Administration Nicardipine HCl 25 mg/ 250 mls @ 25 mls/hr 04/09/19 18:00 04/09/19 23:00 Dextrose IVPB 0 mg/hr TITR [facility] 0 mls/hr Titration Protocol 2.5 MG/HR Mupirocin 1 applic 04/10/19 10:00 04/10/19 09:57 Bactroban Ointment (For Decolonization) - NS 04/15/19 09:59 1 applic BID [facility] Administration Valsartan 160 mg 04/09/19 18:55 04/09/19 19:50 Diovan - PO 160 mg DAILY [facility] Administration Home Medications Medication Instructions Recorded NK [No Known Home Medication] 04/09/19 Current meds. Generic Name Dose Route Start Last Admin Trade Name Freq PRN Reason Stop Dose Admin Aspirin 81 mg 04/11/19 10:00 Ecotrin - PO DAILY [facility] Atorvastatin Calcium 40 mg 04/10/19 22:00 Lipitor - PO HS [facility] Carvedilol 12.5 mg 04/10/19 10:45 Coreg - PO BID [facility] Chlorhexidine Gluconate 1 applic 04/10/19 22:00 Hibiclens For Decolonization - TP HS [facility] Hydralazine HCl 25 mg 04/10/19 14:00 04/10/19 13:16 Apresoline - PO 25 mg TID [facility] Administration Mupirocin 1 applic 04/10/19 22:00 Bactroban Ointment (For Decolonization) - NS 04/15/19 09:59 BID [facility] Valsartan 160 mg 04/10/19 22:00 Diovan - PO BID [facility] MRI result: multiple foci of a small vessel infarction in the periventricular white matter Assessment and plan: Patient is a 53 y/o Female with PMHx of HTN who presented to ED. for having elevated blood pressure (190/110). Pt states that this past Friday she began to experience an episode of dizziness associated with nausea and vomiting. #Hypertensive Emergency: s/p Nicardapine gtt in ICU, now on Coreg 12.5mg bid, continue to monitor. Dr Gomes AND Dr Overton on THE CASE # Multiple small vessel infarction in the periventricular white matter ; aspirin /lipitor added, will monitor her BP closely. Tx her to tele floor. #DVT ppx: heparin sq , hold it when SBP is ABOVE 180 Visit type - Emergency Visit Emergency Visit: Yes ED Registration Date: 04/09/19 Care time: The patient presented to the Emergency Department on the above date and was hospitalized for further evaluation of their emergent condition. - New Patient This patient is new to me today: Yes Date on this admission: 04/10/19 - Critical Care Critical Care patient: No - Discharge Referral Referred to [facility] Med P.C.: No
[2019-04-10] MEDS: VALSARTAN 160 MG TABLET (UD) PO SCH ×2 (10:28→21:45)
--- NOTE | 2019-04-10 10:31 | PN ---
Teaching Attending Note Name of Resident: Ezra Talavera ATTENDING PHYSICIAN STATEMENT I saw and evaluated the patient. I reviewed the resident's note and discussed the case with the resident. I agree with the resident's findings and plan as documented. SUBJECTIVE: Patient seen and examined in the ICU. Off Cardene drip. No DANIELSON, BOV, dizziness, etc. No CP or SOB. OBJECTIVE: Laboratory Results - last 24 hr 04/09/19 04/09/19 04/09/19 14:40 16:21 16:21 WBC 7.8 RBC 5.15 Hgb 12.8 Hct 38.9 MCV 75.4 L MCH 24.8 L MCHC 32.9 RDW 16.2 H Plt Count 193 MPV 10.4 Absolute Neuts (auto) 5.4 Neutrophils % 70.0 Lymphocytes % 21.2 Monocytes % 6.4 Eosinophils % 1.6 Basophils % 0.8 Nucleated RBC % 0 Sodium 142 Potassium 3.7 Chloride 105 Carbon Dioxide 31 Anion Gap 6 L BUN 12.0 Creatinine 1.3 Est GFR (CKD-EPI)AfAm 54.62 Est GFR (CKD-EPI)NonAf 47.13 Random Glucose 132 H Calcium 9.0 Phosphorus Magnesium Total Bilirubin 0.3 AST 22 ALT 12 L Alkaline Phosphatase 121 H Troponin I < 0.02 Total Protein 7.6 Albumin 3.8 TSH Urine Color Yellow Urine Appearance Clear Urine pH 7.0 Ur Specific Gem 1.002 L Urine Protein Negative Urine Glucose (UA) Negative Urine Ketones Negative Urine Blood Negative Urine Nitrite Negative Urine Bilirubin Negative Urine Urobilinogen 0.2 Ur Leukocyte Esterase Negative U Random Total Protein Urine Creatinine Protein/Creatinin Ratio 04/09/19 04/09/19 04/10/19 22:55 22:55 05:50 WBC 7.7 RBC 5.12 Hgb 12.8 Hct 38.3 MCV 74.9 L MCH 25.1 L MCHC 33.5 RDW 15.9 H Plt Count 199 MPV 10.8 Absolute Neuts (auto) Neutrophils % Lymphocytes % Monocytes % Eosinophils % Basophils % Nucleated RBC % Sodium Potassium Chloride Carbon Dioxide Anion Gap BUN Creatinine Est GFR (CKD-EPI)AfAm Est GFR (CKD-EPI)NonAf Random Glucose Calcium Phosphorus Magnesium Total Bilirubin AST ALT Alkaline Phosphatase Troponin I Total Protein Albumin TSH Urine Color Yellow Urine Appearance Clear Urine pH 8.0 Ur Specific Gem 1.006 L Urine Protein Negative Urine Glucose (UA) Negative Urine Ketones Negative Urine Blood Negative Urine Nitrite Negative Urine Bilirubin Negative Urine Urobilinogen 0.2 Ur Leukocyte Esterase Negative U Random Total Protein 16.1 H Urine Creatinine 18.0 L Protein/Creatinin Ratio 0.890 04/10/19 05:50 WBC RBC Hgb Hct MCV MCH MCHC RDW Plt Count MPV Absolute Neuts (auto) Neutrophils % Lymphocytes % Monocytes % Eosinophils % Basophils % Nucleated RBC % Sodium 139 Potassium 4.1 Chloride 104 Carbon Dioxide 29 Anion Gap 5 L BUN 15.1 Creatinine 1.3 Est GFR (CKD-EPI)AfAm 54.62 Est GFR (CKD-EPI)NonAf 47.13 Random Glucose 120 H Calcium 9.2 Phosphorus 4.2 Magnesium 2.5 H Total Bilirubin 0.4 AST 21 ALT 10 L Alkaline Phosphatase 117 Troponin I Total Protein 7.6 Albumin 3.8 TSH 0.87 Urine Color Urine Appearance Urine pH Ur Specific Gem Urine Protein Urine Glucose (UA) Urine Ketones Urine Blood Urine Nitrite Urine Bilirubin Urine Urobilinogen Ur Leukocyte Esterase U Random Total Protein Urine Creatinine Protein/Creatinin Ratio GENERAL: The patient is awake, alert, and fully oriented, in no acute distress. HEAD: Normal with no signs of trauma. EYES: PERRL, extraocular movements intact, sclera anicteric, conjunctiva clear. No ptosis. ENT: Ears normal, nares patent, oropharynx clear without exudates, moist mucous membranes. NECK: Trachea midline, full range of motion, supple. LUNGS: Breath sounds equal, clear to auscultation bilaterally, no wheezes, no crackles, no accessory muscle use. HEART: Regular rate and rhythm, S1, S2 without murmur, rub or gallop. ABDOMEN: Soft, nontender, nondistended, normoactive bowel sounds, no guarding, no rebound, no hepatosplenomegaly, no masses. EXTREMITIES: 2+ pulses, warm, well-perfused, no edema. NEUROLOGICAL: Cranial nerves II through XII grossly intact. Normal speech, gait not observed. PSYCH: Normal mood, normal affect. SKIN: Warm, dry, normal turgor, no rashes or lesions noted Laboratory Results - last 24 hr 04/09/19 04/09/19 04/09/19 14:40 16:21 16:21 WBC 7.8 RBC 5.15 Hgb 12.8 Hct 38.9 MCV 75.4 L MCH 24.8 L MCHC 32.9 RDW 16.2 H Plt Count 193 MPV 10.4 Absolute Neuts (auto) 5.4 Neutrophils % 70.0 Lymphocytes % 21.2 Monocytes % 6.4 Eosinophils % 1.6 Basophils % 0.8 Nucleated RBC % 0 Sodium 142 Potassium 3.7 Chloride 105 Carbon Dioxide 31 Anion Gap 6 L BUN 12.0 Creatinine 1.3 Est GFR (CKD-EPI)AfAm 54.62 Est GFR (CKD-EPI)NonAf 47.13 Random Glucose 132 H Calcium 9.0 Phosphorus Magnesium Total Bilirubin 0.3 AST 22 ALT 12 L Alkaline Phosphatase 121 H Troponin I < 0.02 Total Protein 7.6 Albumin 3.8 TSH Urine Color Yellow Urine Appearance Clear Urine pH 7.0 Ur Specific Gem 1.002 L Urine Protein Negative Urine Glucose (UA) Negative Urine Ketones Negative Urine Blood Negative Urine Nitrite Negative Urine Bilirubin Negative Urine Urobilinogen 0.2 Ur Leukocyte Esterase Negative U Random Total Protein Urine Creatinine Protein/Creatinin Ratio 04/09/19 04/09/19 04/10/19 22:55 22:55 05:50 WBC 7.7 RBC 5.12 Hgb 12.8 Hct 38.3 MCV 74.9 L MCH 25.1 L MCHC 33.5 RDW 15.9 H Plt Count 199 MPV 10.8 Absolute Neuts (auto) Neutrophils % Lymphocytes % Monocytes % Eosinophils % Basophils % Nucleated RBC % Sodium Potassium Chloride Carbon Dioxide Anion Gap BUN Creatinine Est GFR (CKD-EPI)AfAm Est GFR (CKD-EPI)NonAf Random Glucose Calcium Phosphorus Magnesium Total Bilirubin AST ALT Alkaline Phosphatase Troponin I Total Protein Albumin TSH Urine Color Yellow Urine Appearance Clear Urine pH 8.0 Ur Specific Gem 1.006 L Urine Protein Negative Urine Glucose (UA) Negative Urine Ketones Negative Urine Blood Negative Urine Nitrite Negative Urine Bilirubin Negative Urine Urobilinogen 0.2 Ur Leukocyte Esterase Negative U Random Total Protein 16.1 H Urine Creatinine 18.0 L Protein/Creatinin Ratio 0.890 04/10/19 05:50 WBC RBC Hgb Hct MCV MCH MCHC RDW Plt Count MPV Absolute Neuts (auto) Neutrophils % Lymphocytes % Monocytes % Eosinophils % Basophils % Nucleated RBC % Sodium 139 Potassium 4.1 Chloride 104 Carbon Dioxide 29 Anion Gap 5 L BUN 15.1 Creatinine 1.3 Est GFR (CKD-EPI)AfAm 54.62 Est GFR (CKD-EPI)NonAf 47.13 Random Glucose 120 H Calcium 9.2 Phosphorus 4.2 Magnesium 2.5 H Total Bilirubin 0.4 AST 21 ALT 10 L Alkaline Phosphatase 117 Troponin I Total Protein 7.6 Albumin 3.8 TSH 0.87 Urine Color Urine Appearance Urine pH Ur Specific Gem Urine Protein Urine Glucose (UA) Urine Ketones Urine Blood Urine Nitrite Urine Bilirubin Urine Urobilinogen Ur Leukocyte Esterase U Random Total Protein Urine Creatinine Protein/Creatinin Ratio Active Medications Generic Name Dose Route Start Last Admin Trade Name Amber PRN Reason Stop Dose Admin Carvedilol 6.25 mg 04/09/19 22:00 04/10/19 09:57 Coreg - PO 6.25 mg BID [facility] Administration Chlorhexidine Gluconate 1 applic 04/09/19 22:00 04/09/19 23:59 Hibiclens For Decolonization - TP Not Given HS [facility] Heparin Sodium (Porcine) 5,000 unit 04/09/19 19:00 04/10/19 06:44 Heparin - SQ 5,000 unit TID [facility] Administration Nicardipine HCl 25 mg/ 250 mls @ 25 mls/hr 04/09/19 18:00 04/09/19 23:00 Dextrose IVPB 0 mg/hr TITR [facility] 0 mls/hr Titration Protocol 2.5 MG/HR Mupirocin 1 applic 04/10/19 10:00 04/10/19 09:57 Bactroban Ointment (For Decolonization) - NS 04/15/19 09:59 1 applic BID [facility] Administration Valsartan 160 mg 04/09/19 18:55 04/09/19 19:50 Diovan - PO 160 mg DAILY [facility] Administration ASSESSMENT/PLAN: Hypertensive Emergency HTN by history Titrate PO meds OOB to chair ECHO PO as tolerated: Low sodium diet Follow on MRI results Floor with monitoring of BP Dr Alexander
--- NOTE | 2019-04-10 10:32 | EKG ---
Test Reason : Blood Pressure : / mmHG Vent. Rate : 081 BPM Atrial Rate : 081 BPM P-R Int : 130 ms QRS Dur : 086 ms QT Int : 388 ms P-R-T Axes : 068 063 -13 degrees QTc Int : 450 ms NORMAL SINUS RHYTHM WITH SINUS ARRHYTHMIA VOLTAGE CRITERIA FOR LEFT VENTRICULAR HYPERTROPHY ABNORMAL ECG WHEN COMPARED WITH ECG OF 09-APR-2019 16:32, NO SIGNIFICANT CHANGE WAS FOUND Confirmed by GE JONES MD ([id number]) on 04/10/2019 10:32:25 AM Referred By: Confirmed By:GE JONES MD
--- NOTE | 2019-04-10 10:43 | PN ---
Progress Note, Physician Chief Complaint: Events noted Not in distress History of Present Illness: Patient was seen and examined. Awake and alert. Chart was reviewed. Denies chest pain, SOB or palpitations BP still elevated - Current Medication List Current Medications: Active Medications Carvedilol (Coreg -) 6.25 mg PO BID [facility] Last Admin: 04/10/19 09:57 Dose: 6.25 mg Chlorhexidine Gluconate (Hibiclens For Decolonization -) 1 applic TP HS [facility] Last Admin: 04/09/19 23:59 Dose: Not Given Nicardipine HCl 25 mg/ (Dextrose) 250 mls @ 25 mls/hr IVPB TITR [facility]; Protocol Last Titration: 04/09/19 23:00 Dose: 0 mg/hr, 0 mls/hr Mupirocin (Bactroban Ointment (For Decolonization) -) 1 applic NS BID [facility] Stop: 04/15/19 09:59 Last Admin: 04/10/19 09:57 Dose: 1 applic Valsartan (Diovan -) 160 mg PO DAILY [facility] Last Admin: 04/10/19 10:28 Dose: 160 mg - Objective Vital Signs: Vital Signs Temperature 98.3 F 04/10/19 10:06 Pulse Rate 80 04/10/19 10:03 Respiratory Rate 18 04/10/19 10:03 Blood Pressure 196/94 H 04/10/19 10:03 O2 Sat by Pulse Oximetry (%) 100 04/10/19 07:37 Eyes: Yes: PERRL HENT: Yes: Atraumatic Neck: Yes: Supple Cardiovascular: Yes: Regular Rate and Rhythm, S1, S2 Respiratory: Yes: CTA Bilaterally Gastrointestinal: Yes: Normal Bowel Sounds, Soft. No: Tenderness Edema: No Additional Findings/Remarks: - Review of Systems Constitutional: denies: Chills, Fever Cardiovascular: denies: Chest Pain, Palpitations, Shortness of Breath Respiratory: denies: Cough, Hemoptysis, Orthopnea, PND, SOB, SOB on Exertion Gastrointestinal: denies: Abdominal Pain, Constipation, Diarrhea, Melena, Nausea , Rectal Bleeding, Vomiting Genitourinary: denies: Dysuria, Hematuria Musculoskeletal: denies: Back Pain, Joint Pain Neurological: denies: Dizziness, Syncope. denies: Confusion, Headache, Numbness , Seizure, Unsteady Gait Labs: CBC, BMP 04/10/19 05:50 04/10/19 05:50 Problem List - Problems (1) CKD (chronic kidney disease) Code(s): N18.9 - CHRONIC KIDNEY DISEASE, UNSPECIFIED Qualifiers: Chronic kidney disease stage: stage 2 (mild) Qualified Code(s): N18.2 - Chronic kidney disease, stage 2 (mild) (2) Hypertensive urgency Code(s): I16.0 - HYPERTENSIVE URGENCY Assessment/Plan 1. Hypertensive urgency and encephelopathy due to medication noncompliance 2. CKD PLAN: 1. Continue Carvedilol but uptitrate dose and Continue Diovan to max dose of 320 mg QD of 160 mg BID. Consider Hydralazine for added BP control 2. Echocardiogram to assess LV/RV and valvular function 3. Consider further evaluation for secondary cause including SUZE 4. Emphasized importance of medication compliance Further plans are to follow Александр Harkins MD
[2019-04-10] MEDS ORDERED: CARVEDILOL 12.5 MG TABLET (FP) PO SCH (10:45)
[2019-04-10] MEDS ORDERED: hydrALAZINE HCL 20 MG/ML VIAL IVPUSH ONE (10:46)
--- NOTE | 2019-04-10 11:40 | CONSULT ---
Consult - text type - Consultation Consultation Note: Neurology CHIEF COMPLAINT: Elevated Blood pressure. Sent by PCP. PCP: Dr Le Singleton HISTORY OF PRESENT ILLNESS: Pt is a 53 y/o F with a significant past medical history of HTN who [facility] to severely elevated blood pressure (190/ 110). Pt stated that this past Friday, prior to admission, she began to experience an episode of dizziness w/ associated nausea and vomiting. Pt stated she was in her home when this episode occurred. Pt went to rest and woke up shortly afterwards and still was experiencing dizziness. Pt stated she drank water with lemon, hoping this would assuage her symptoms. Subsequently, the following /Friday, pt then began to experience a pain in her right ear. Pt denies any ringing sensation. Pt stated she has been prescribed antihypertensive medications in the past however did not want to take them as she "worried about the side-effects of the medications.". Pt stated she takes Garlic w/ parsley that she purchased from a pharmacy to help with her blood pressure. Denied ever experiencing a similar episode in the past. Denies chest pain, shortness of breath, LOC, or illicit drug use. Head CT completed, Mild nonspecific bilateral frontoparietal subcortical and periventricular white matter hypodensity which could be on the basis of etiologies such as chronic microvascular ischemic changes and/or hypertensive encephalopathy. Brain Mri completed, reports pending. Patient reports feeling well this AM in ICU, no deficits and mental status intact. Discussed with her and and bedside and they were inquiring regarding etiology of hypertensive emergency. Discussed importance of BP control. Allergies Allergy/AdvReac Type Severity Reaction Status Date / Time No Known Allergies Allergy Verified 04/09/19 15:52 Ambulatory Orders NK [No Known Home Medication] 04/09/19 Active Medications Carvedilol (Coreg -) 12.5 mg PO BID [facility] Chlorhexidine Gluconate (Hibiclens For Decolonization -) 1 applic TP HS [facility] Last Admin: 04/09/19 23:59 Dose: Not Given Hydralazine HCl (Apresoline -) 25 mg PO TID [facility] Mupirocin (Bactroban Ointment (For Decolonization) -) 1 applic NS BID [facility] Stop: 04/15/19 09:59 Last Admin: 04/10/19 09:57 Dose: 1 applic Valsartan (Diovan -) 160 mg PO BID [facility] REVIEW OF SYSTEMS CONSTITUTIONAL: PRESENT Vomiting HEENT: Absent: rhinorrhea, nasal congestion, throat pain, throat swelling, difficulty swallowing, mouth swelling, ear pain, eye pain, visual changes CARDIOVASCULAR: Absent: chest pain, syncope, palpitations, irregular heart rate, lightheadedness , peripheral edema RESPIRATORY: Absent: cough, shortness of breath, dyspnea with exertion, orthopnea, wheezing, stridor, hemoptysis GASTROINTESTINAL: Absent: abdominal pain, abdominal distension, nausea, vomiting, diarrhea, constipation, melena, hematochezia GENITOURINARY: Absent: dysuria, frequency, urgency, hesitancy, hematuria, flank pain, genital pain MUSCULOSKELETAL: Absent: myalgia, arthralgia, joint swelling, back pain, neck pain SKIN: Absent: rash, itching, pallor HEMATOLOGIC/IMMUNOLOGIC: Absent: easy bleeding, easy bruising, lymphadenopathy, frequent infections ENDOCRINE: Absent: unexplained weight gain, unexplained weight loss, heat intolerance, cold intolerance NEUROLOGIC: PRESENT headache,dizziness PSYCHIATRIC: Absent: anxiety, depression, suicidal or homicidal ideation, hallucinations. PHYSICAL EXAMINATION Vital Signs Temperature 98.3 F 04/10/19 10:06 Pulse Rate 76 04/10/19 11:12 Respiratory Rate 18 04/10/19 11:12 Blood Pressure 193/104 H 04/10/19 11:12 O2 Sat by Pulse Oximetry (%) 100 04/10/19 07:37 GENERAL: NAD HEAD: Normal with no signs of trauma. EYES: EOMI, PERRLA, Sclera Clear EARS, NOSE, THROAT: MMM NECK: Normal range of motion, supple without lymphadenopathy, JVD, or masses. LUNGS: CTAB HEART: RRR ABDOMEN: Soft, NDNT MUSCULOSKELETAL: FROM throughout LOWER EXTREMITIES: No CCE NEUROLOGICAL: Cranial nerves II-XII intact. Normal speech. PSYCHIATRIC: Cooperative. Good eye contact. Appropriate mood and affect. SKIN: Warm, CBCD WBC 7.7 K/mm3 (4.0-10.0) 04/10/19 05:50 RBC 5.12 M/mm3 (3.60-5.2) 04/10/19 05:50 Hgb 12.8 GM/dL (10.7-15.3) 04/10/19 05:50 Hct 38.3 % (32.4-45.2) 04/10/19 05:50 MCV 74.9 fl (80-96) L 04/10/19 05:50 MCHC 33.5 g/dl (32.0-36.0) 04/10/19 05:50 RDW 15.9 % (11.6-15.6) H 04/10/19 05:50 Plt Count 199 K/MM3 (134-434) 04/10/19 05:50 MPV 10.8 fl (7.5-11.1) 04/10/19 05:50 CMP Sodium 139 mmol/L (136-145) 04/10/19 05:50 Potassium 4.1 mmol/L (3.5-5.1) 04/10/19 05:50 Chloride 104 mmol/L (98-107) 04/10/19 05:50 Carbon Dioxide 29 mmol/L (21-32) 04/10/19 05:50 Anion Gap 5 MMOL/L (8-16) L 04/10/19 05:50 BUN 15.1 mg/dL (7-18) 04/10/19 05:50 Creatinine 1.3 mg/dL (0.55-1.3) 04/10/19 05:50 Random Glucose 120 mg/dL (74-106) H 04/10/19 05:50 Calcium 9.2 mg/dL (8.5-10.1) 04/10/19 05:50 Total Bilirubin 0.4 mg/dL (0.2-1) 04/10/19 05:50 AST 21 U/L (15-37) 04/10/19 05:50 ALT 10 U/L (13-61) L 04/10/19 05:50 Alkaline Phosphatase 117 U/L (45-117) 04/10/19 05:50 Total Protein 7.6 g/dl (6.4-8.2) 04/10/19 05:50 Albumin 3.8 g/dl (3.4-5.0) 04/10/19 05:50 CARDIAC ENZYMES Troponin I < 0.02 ng/ml (0.00-0.05) 04/09/19 16:21 ASSESSMENT/PLAN: Pt is a 53 y/o F with a significant past medical history of HTN who presented to [facility] at the behest of her PMD due to severely elevated blood pressure (190/ 110). Pt stated that this past Friday, prior to admission, she began to experience an episode of dizziness w/ associated nausea and vomiting. Pt stated she was in her home when this episode occurred. Pt went to rest and woke up shortly afterwards and still was experiencing dizziness. Pt stated she drank water with lemon, hoping this would assuage her symptoms. Subsequently, the following /Friday, pt then began to experience a pain in her right ear. Pt denies any ringing sensation. Pt stated she has been prescribed antihypertensive medications in the past however did not want to take them as she "worried about the side-effects of the medications.". Pt stated she takes Garlic w/ parsley that she purchased from a pharmacy to help with her blood pressure. Denied ever experiencing a similar episode in the past. Denies chest pain, shortness of breath, LOC, or illicit drug use. Head CT completed, Mild nonspecific bilateral frontoparietal subcortical and periventricular white matter hypodensity which could be on the basis of etiologies such as chronic microvascular ischemic changes and/or hypertensive encephalopathy. Brain Mri completed, reports pending. Patient reports feeling well this AM in ICU, no deficits and mental status intact. Discussed with her and and bedside and they were inquiring regarding etiology of hypertensive emergency. Discussed importance of BP control. Possibly for downgraded to tele. Critical care time 35 mins.
--- NOTE | 2019-04-10 12:51 | EKG ---
Test Reason : Blood Pressure : / mmHG Vent. Rate : 082 BPM Atrial Rate : 082 BPM P-R Int : 126 ms QRS Dur : 094 ms QT Int : 378 ms P-R-T Axes : 055 044 -28 degrees QTc Int : 441 ms NORMAL SINUS RHYTHM POSSIBLE LEFT ATRIAL ENLARGEMENT LEFT VENTRICULAR HYPERTROPHY WITH REPOLARIZATION ABNORMALITY NONSPECIFIC ST ABNORMALITY ABNORMAL ECG NO PREVIOUS ECGS AVAILABLE Confirmed by GE JONES MD ([id number]) on 04/10/2019 12:51:36 PM Referred By: Confirmed By:GE JONES MD
[2019-04-10] MEDS ORDERED: hydrALAZINE HCL 25 MG TABLET (FP) PO SCH (14:00)
[2019-04-10] MEDS: hydrALAZINE HCL 25 MG TABLET (FP) PO SCH (21:45)
[2019-04-10] MEDS: CARVEDILOL 12.5 MG TABLET (FP) PO SCH (21:45)
[2019-04-10] MEDS ORDERED: ATORVASTATIN CA 40 MG TABLET (FP) PO SCH (22:00)
[2019-04-10] MEDS ORDERED: CHLORHEXIDINE GLUCONATE 4% CLEANSER FOR DECOLONIZATION TP SCH (22:00)
[2019-04-10] MEDS ORDERED: VALSARTAN 160 MG TABLET (UD) PO SCH (22:00)
[2019-04-11] MEDS: hydrALAZINE HCL 25 MG TABLET (FP) PO SCH (06:12)
[2019-04-11] MEDS ORDERED: hydrALAZINE HCL 25 MG TABLET (FP) PO SCH (08:41)
--- NOTE | 2019-04-11 09:03 | PN ---
Progress Note, Physician Chief Complaint: Events noted Not in distress History of Present Illness: Patient was seen and examined. Awake and alert. Chart was reviewed. Denies chest pain, SOB or palpitations - Current Medication List Current Medications: Active Medications Aspirin (Ecotrin -) 81 mg PO DAILY [facility] Atorvastatin Calcium (Lipitor -) 40 mg PO HS [facility] Last Admin: 04/10/19 21:45 Dose: 40 mg Carvedilol (Coreg -) 12.5 mg PO BID [facility] Last Admin: 04/10/19 21:45 Dose: 12.5 mg Hydralazine HCl (Apresoline -) 50 mg PO TID [facility] Valsartan (Diovan -) 160 mg PO BID [facility] Last Admin: 04/10/19 21:45 Dose: 160 mg - Objective Vital Signs: Vital Signs Temperature 99.1 F 04/11/19 02:00 Pulse Rate 87 04/11/19 06:34 Respiratory Rate 18 04/11/19 06:34 Blood Pressure 158/88 04/11/19 06:34 O2 Sat by Pulse Oximetry (%) 100 04/10/19 21:00 Eyes: Yes: PERRL HENT: Yes: Atraumatic Neck: Yes: Supple Cardiovascular: Yes: Regular Rate and Rhythm, S1, S2 Respiratory: Yes: CTA Bilaterally Gastrointestinal: Yes: Normal Bowel Sounds, Soft. No: Tenderness Edema: No Additional Findings/Remarks: - Review of Systems Constitutional: denies: Chills, Fever Cardiovascular: denies: Chest Pain, Palpitations, Shortness of Breath Respiratory: denies: Cough, Hemoptysis, Orthopnea, PND, SOB, SOB on Exertion Gastrointestinal: denies: Abdominal Pain, Constipation, Diarrhea, Melena, Nausea , Rectal Bleeding, Vomiting Genitourinary: denies: Dysuria, Hematuria Musculoskeletal: denies: Back Pain, Joint Pain Neurological: denies: Dizziness, Syncope. denies: Confusion, Headache, Numbness , Seizure, Unsteady Gait Labs: CBC, BMP 04/10/19 05:50 04/10/19 05:50 Problem List - Problems (1) CKD (chronic kidney disease) Code(s): N18.9 - CHRONIC KIDNEY DISEASE, UNSPECIFIED Qualifiers: Chronic kidney disease stage: stage 2 (mild) Qualified Code(s): N18.2 - Chronic kidney disease, stage 2 (mild) (2) Hypertensive urgency Code(s): I16.0 - HYPERTENSIVE URGENCY Assessment/Plan 1. Hypertensive urgency and encephelopathy due to medication noncompliance - improving 2. CKD PLAN: 1. Continue Carvedilol but uptitrate dose and may increase to 25 mg BID and Continue Diovan 160 mg BID. Continue Hydralazine 50 mg TID 2. Echocardiogram to assess LV/RV and valvular function 3. Consider further evaluation for secondary cause including SUZE if BP not well controlled 4. Emphasized importance of medication compliance Further plans are to follow Александр Harkins MD
--- NOTE | 2019-04-11 09:50 | PDOC ---
*Physical Exam - Vital Signs Last Vital Signs Temp Pulse Resp BP Pulse Ox 98.9 F 94 H 17 140/83 100 04/11/19 09:06 04/11/19 09:06 04/11/19 09:06 04/11/19 09:06 04/10/19 21:00 ED Treatment Course - LABORATORY CBC & Chemistry Diagram: 04/10/19 05:50 04/10/19 05:50 - ADDITIONAL ORDERS Additional order review: 04/09/19 16:21 RBC 5.15 MCV 75.4 L MCHC 32.9 RDW 16.2 H MPV 10.4 Neutrophils % 70.0 Lymphocytes % 21.2 Monocytes % 6.4 Eosinophils % 1.6 Basophils % 0.8 - Medications Given in the ED: ED Medications Discontinued Medications Generic Name Dose Route Start Last Admin Trade Name Nikoq PRN Reason Stop Dose Admin Carvedilol 6.25 mg 04/09/19 22:00 04/10/19 09:57 Coreg - PO 6.25 mg BID [facility] Administration Chlorhexidine Gluconate 1 applic 04/09/19 22:00 04/09/19 23:59 Hibiclens For Decolonization - TP Not Given HS [facility] Heparin Sodium (Porcine) 5,000 unit 04/09/19 19:00 04/10/19 06:44 Heparin - SQ 5,000 unit TID [facility] Administration Hydralazine HCl 10 mg 04/10/19 10:46 04/10/19 11:09 Apresoline Injection - IVPUSH 04/10/19 10:47 10 mg ONCE ONE Administration Hydralazine HCl 25 mg 04/10/19 14:00 04/10/19 13:16 Apresoline - PO 25 mg TID [facility] Administration Hydralazine HCl 25 mg 04/10/19 22:00 04/11/19 06:12 Apresoline - PO 25 mg TID [facility] Administration Nicardipine HCl 25 mg/ 250 mls @ 25 mls/hr 04/09/19 18:00 04/09/19 23:00 Dextrose IVPB 0 mg/hr TITR [facility] 0 mls/hr Titration Protocol 2.5 MG/HR Sodium Chloride 500 mls @ 500 mls/hr 04/10/19 02:04 04/10/19 06:42 Normal Saline - IV 04/10/19 03:03 Not Given ASDIR STA Mupirocin 1 applic 04/10/19 10:00 04/10/19 09:57 Bactroban Ointment (For Decolonization) - NS 04/15/19 09:59 1 applic BID [facility] Administration Valsartan 160 mg 04/09/19 18:55 04/10/19 10:28 Diovan - PO 160 mg DAILY [facility] Administration Medical Decision Making - Critical Care Time Total Critical Care Time (minutes): 60 Critical Care Statement: The care of this patient involved high complexity decision making to prevent further life threatening deterioration of the patient 's condition and/or to evaluate & treat vital organ system(s) failure or risk of failure. *DC/Admit/Observation/Transfer Diagnosis at time of Disposition: Hypertensive emergency - Discharge Dispostion Condition at time of disposition: Guarded - Referrals - Patient Instructions - Post Discharge Activity
[2019-04-11] MEDS ORDERED: ASPIRIN COATED 81 MG TABLET.EC PO SCH (10:00)
[2019-04-11] MEDS: VALSARTAN 160 MG TABLET (UD) PO SCH (10:23)
[2019-04-11] MEDS: CARVEDILOL 12.5 MG TABLET (FP) PO SCH (10:23)
--- NOTE | 2019-04-11 11:07 | PN ---
Progress Note (short form) - Note Progress Note: Neurology CHIEF COMPLAINT: Elevated Blood pressure. Sent by PCP. PCP: Dr Le Singleton HISTORY OF PRESENT ILLNESS: Pt is a 53 y/o F with a significant past medical history of HTN who presented to [facility] at the behest of her PMD due to severely elevated blood pressure (190/ 110). Pt stated that this past Friday, prior to admission, she began to experience an episode of dizziness w/ associated nausea and vomiting. Pt stated she was in her home when this episode occurred. Pt went to rest and woke up shortly afterwards and still was experiencing dizziness. Pt stated she drank water with lemon, hoping this would assuage her symptoms. Subsequently, the following /Friday, pt then began to experience a pain in her right ear. Pt denies any ringing sensation. Pt stated she has been prescribed antihypertensive medications in the past however did not want to take them as she "worried about the side-effects of the medications.". Pt stated she takes Garlic w/ parsley that she purchased from a pharmacy to help with her blood pressure. Denied ever experiencing a similar episode in the past. Denies chest pain, shortness of breath, LOC, or illicit drug use. Head CT completed, Mild nonspecific bilateral frontoparietal subcortical and periventricular white matter hypodensity which could be on the basis of etiologies such as chronic microvascular ischemic changes and/or hypertensive encephalopathy. Brain Mri completed, no acute infarct noted. Patient reports feeling at baseline this AM with no deficits and mental status intact. Is interested in going home, asked about exercising, advised to keep BP in normotensive range. She was in agreement , no aggresive activity for next week at least. Follow up with primary recommended. Allergies Allergy/AdvReac Type Severity Reaction Status Date / Time No Known Allergies Allergy Verified 04/09/19 15:52 Ambulatory Orders NK [No Known Home Medication] 04/09/19 Active Medications Aspirin (Ecotrin -) 81 mg PO DAILY [facility] Last Admin: 04/11/19 10:23 Dose: 81 mg Atorvastatin Calcium (Lipitor -) 40 mg PO HS [facility] Last Admin: 04/10/19 21:45 Dose: 40 mg Carvedilol (Coreg -) 12.5 mg PO BID [facility] Last Admin: 04/11/19 10:23 Dose: 12.5 mg Hydralazine HCl (Apresoline -) 50 mg PO TID [facility] Valsartan (Diovan -) 160 mg PO BID [facility] Last Admin: 04/11/19 10:23 Dose: 160 mg PHYSICAL EXAMINATION Vital Signs Temperature 98.9 F 04/11/19 09:06 Pulse Rate 94 H 04/11/19 09:06 Respiratory Rate 17 04/11/19 09:06 Blood Pressure 140/83 04/11/19 09:06 O2 Sat by Pulse Oximetry (%) 100 04/10/19 21:00 GENERAL: NAD HEAD: Normal with no signs of trauma. EYES: EOMI, PERRLA, Sclera Clear EARS, NOSE, THROAT: MMM NECK: Normal range of motion, supple without lymphadenopathy, JVD, or masses. LUNGS: CTAB HEART: RRR ABDOMEN: Soft, NDNT MUSCULOSKELETAL: FROM throughout LOWER EXTREMITIES: No CCE NEUROLOGICAL: Cranial nerves II-XII intact. Normal speech. Strenght intact, b/l , Sensory equal, finger to nose normal. PSYCHIATRIC: Cooperative. Good eye contact. Appropriate mood and affect. SKIN: Warm, CBCD WBC 7.7 K/mm3 (4.0-10.0) 04/10/19 05:50 RBC 5.12 M/mm3 (3.60-5.2) 04/10/19 05:50 Hgb 12.8 GM/dL (10.7-15.3) 04/10/19 05:50 Hct 38.3 % (32.4-45.2) 04/10/19 05:50 MCV 74.9 fl (80-96) L 04/10/19 05:50 MCHC 33.5 g/dl (32.0-36.0) 04/10/19 05:50 RDW 15.9 % (11.6-15.6) H 04/10/19 05:50 Plt Count 199 K/MM3 (134-434) 04/10/19 05:50 MPV 10.8 fl (7.5-11.1) 04/10/19 05:50 CMP Sodium 139 mmol/L (136-145) 04/10/19 05:50 Potassium 4.1 mmol/L (3.5-5.1) 04/10/19 05:50 Chloride 104 mmol/L (98-107) 04/10/19 05:50 Carbon Dioxide 29 mmol/L (21-32) 04/10/19 05:50 Anion Gap 5 MMOL/L (8-16) L 04/10/19 05:50 BUN 15.1 mg/dL (7-18) 04/10/19 05:50 Creatinine 1.3 mg/dL (0.55-1.3) 04/10/19 05:50 Random Glucose 120 mg/dL (74-106) H 04/10/19 05:50 Calcium 9.2 mg/dL (8.5-10.1) 04/10/19 05:50 Total Bilirubin 0.4 mg/dL (0.2-1) 04/10/19 05:50 AST 21 U/L (15-37) 04/10/19 05:50 ALT 10 U/L (13-61) L 04/10/19 05:50 Alkaline Phosphatase 117 U/L (45-117) 04/10/19 05:50 Total Protein 7.6 g/dl (6.4-8.2) 04/10/19 05:50 Albumin 3.8 g/dl (3.4-5.0) 04/10/19 05:50 CARDIAC ENZYMES Troponin I < 0.02 ng/ml (0.00-0.05) 04/09/19 16:21 ASSESSMENT/PLAN: Pt is a 53 y/o F with a significant past medical history of HTN who presented to [facility] at the behest of her PMD due to severely elevated blood pressure (190/ 110). Pt stated that this past Friday, prior to admission, she began to experience an episode of dizziness w/ associated nausea and vomiting. Pt stated she was in her home when this episode occurred. Pt went to rest and woke up shortly afterwards and still was experiencing dizziness. Pt stated she drank water with lemon, hoping this would assuage her symptoms. Subsequently, the following /Friday, pt then began to experience a pain in her right ear. Pt denies any ringing sensation. Pt stated she has been prescribed antihypertensive medications in the past however did not want to take them as she "worried about the side-effects of the medications.". Pt stated she takes Garlic w/ parsley that she purchased from a pharmacy to help with her blood pressure. Denied ever experiencing a similar episode in the past. Denies chest pain, shortness of breath, LOC, or illicit drug use. Head CT completed, Mild nonspecific bilateral frontoparietal subcortical and periventricular white matter hypodensity which could be on the basis of etiologies such as chronic microvascular ischemic changes and/or hypertensive encephalopathy. Brain Mri completed, no acute infarct noted. Patient reports feeling at baseline this AM with no deficits and mental status intact. Is interested in going home, asked about exercising, advised to keep BP in normotensive range. She was in agreement , no aggresive activity for next week at least. Follow up with primary recommended. Downgraded to tele.
--- NOTE | 2019-04-11 13:49 | PN ---
Teaching Attending Note Name of Resident: Baldev Daniel ATTENDING PHYSICIAN STATEMENT I saw and evaluated the patient. I reviewed the resident's note and discussed the case with the resident. I agree with the resident's findings and plan as documented. SUBJECTIVE: Patient is comfortable with no acute distress. OBJECTIVE: Vital Signs Temperature 98.9 F 04/11/19 09:06 Pulse Rate 94 H 04/11/19 09:06 Respiratory Rate 17 04/11/19 09:06 Blood Pressure 140/83 04/11/19 09:06 O2 Sat by Pulse Oximetry (%) 100 04/10/19 21:00 GENERAL: The patient is awake, alert, and fully oriented, in no acute distress. HEAD: Normal with no signs of trauma. EYES: PERRL, extraocular movements intact, sclera anicteric, conjunctiva clear. ENT: Ears normal, oropharynx clear without exudates, moist mucous membranes. NECK: Trachea midline, full range of motion, supple. LUNGS: Breath sounds equal, clear to auscultation bilaterally, no wheezes, no crackles, no accessory muscle use. HEART: Regular rate and rhythm, S1, S2 without murmur, rub or gallop. ABDOMEN: Soft, nontender, nondistended, normoactive bowel sounds, no guarding, no rebound, no hepatosplenomegaly, no masses. EXTREMITIES: 2+ pulses, warm, well-perfused, no edema. NEUROLOGICAL: Cranial nerves II through XII grossly intact. Normal speech, gait not observed. PSYCH: Normal mood, normal affect. SKIN: Warm, dry, normal turgor, no rashes or lesions noted CBCD WBC 7.7 K/mm3 (4.0-10.0) 04/10/19 05:50 RBC 5.12 M/mm3 (3.60-5.2) 04/10/19 05:50 Hgb 12.8 GM/dL (10.7-15.3) 04/10/19 05:50 Hct 38.3 % (32.4-45.2) 04/10/19 05:50 MCV 74.9 fl (80-96) L 04/10/19 05:50 MCHC 33.5 g/dl (32.0-36.0) 04/10/19 05:50 RDW 15.9 % (11.6-15.6) H 04/10/19 05:50 Plt Count 199 K/MM3 (134-434) 04/10/19 05:50 MPV 10.8 fl (7.5-11.1) 04/10/19 05:50 CMP Sodium 139 mmol/L (136-145) 04/10/19 05:50 Potassium 4.1 mmol/L (3.5-5.1) 04/10/19 05:50 Chloride 104 mmol/L (98-107) 04/10/19 05:50 Carbon Dioxide 29 mmol/L (21-32) 04/10/19 05:50 Anion Gap 5 MMOL/L (8-16) L 04/10/19 05:50 BUN 15.1 mg/dL (7-18) 04/10/19 05:50 Creatinine 1.3 mg/dL (0.55-1.3) 04/10/19 05:50 Random Glucose 120 mg/dL (74-106) H 04/10/19 05:50 Calcium 9.2 mg/dL (8.5-10.1) 04/10/19 05:50 Total Bilirubin 0.4 mg/dL (0.2-1) 04/10/19 05:50 AST 21 U/L (15-37) 04/10/19 05:50 ALT 10 U/L (13-61) L 04/10/19 05:50 Alkaline Phosphatase 117 U/L (45-117) 04/10/19 05:50 Total Protein 7.6 g/dl (6.4-8.2) 04/10/19 05:50 Albumin 3.8 g/dl (3.4-5.0) 04/10/19 05:50 CARDIAC ENZYMES Troponin I < 0.02 ng/ml (0.00-0.05) 04/09/19 16:21 Current Medications Generic Name Dose Route Start Last Admin Trade Name Freq PRN Reason Stop Dose Admin Aspirin 81 mg 04/11/19 10:00 04/11/19 10:23 Ecotrin - PO 81 mg DAILY [facility] Administration Atorvastatin Calcium 40 mg 04/10/19 22:00 04/10/19 21:45 Lipitor - PO 40 mg HS [facility] Administration Carvedilol 12.5 mg 04/10/19 22:00 04/11/19 10:23 Coreg - PO 12.5 mg BID [facility] Administration Hydralazine HCl 50 mg 04/11/19 08:41 Apresoline - PO TID [facility] Valsartan 160 mg 04/10/19 22:00 04/11/19 10:23 Diovan - PO 160 mg BID [facility] Administration Home Medications Medication Instructions Recorded Aspirin Coated [Ecotrin -] 81 mg PO DAILY #30 tablet.ec 04/11/19 Atorvastatin Ca [Lipitor] 40 mg PO HS #30 tablet 04/11/19 Carvedilol [Coreg -] 12.5 mg PO BID #60 tablet 04/11/19 Valsartan [Diovan] 160 mg PO BID #30 tablet 04/11/19 hydrALAZINE HCL [Apresoline -] 50 mg PO TID #90 tablet 04/11/19 MRI result: multiple foci of a small vessel infarction in the periventricular white matter Assessment and plan: Patient is a 53 y/o Female with PMHx of HTN who presented to ED. for having elevated blood pressure (190/110). Pt states that this past Friday she began to experience an episode of dizziness associated with nausea and vomiting. #Hypertensive Emergency: improved now, increased the dose of hydralazine, continue Coreg, s/p Nicardapine gtt in ICU. follow up with dr Overton # Multiple small vessel infarction in the periventricular white matter ; aspirin /lipitor dc patient home.
--- NOTE | 2019-04-11 13:49 | DS ---
Physical Exam: SUBJECTIVE: Patient seen and examined at bedside. Patient feels better today. BP normal. OBJECTIVE: Vital Signs Period Temp Pulse Resp BP Sys/Cabrera Pulse Ox Last 24 Hr 98.9 F-99.4 F 87-102 17-18 131-158/67-96 100 PHYSICAL EXAM GENERAL: The patient is awake, alert, and fully oriented, in no acute distress. HEAD: Normal with no signs of trauma. EYES: PERRL, extraocular movements intact, sclera anicteric, conjunctiva clear. LUNGS: Breath sounds equal, clear to auscultation bilaterally, no wheezes, no crackles, no accessory muscle use. HEART: Regular rate and rhythm, S1, S2 without murmur, rub or gallop. ABDOMEN: Soft, nontender, nondistended, normoactive bowel sounds, no guarding, no rebound, no hepatosplenomegaly, no masses. EXTREMITIES: 2+ pulses, warm, well-perfused, no edema. NEUROLOGICAL: Cranial nerves II through X grossly intact. Normal speech, gait not observed. PSYCH: Normal mood, normal affect. SKIN: Warm, dry, normal turgor, no rashes or lesions noted. LABS HOSPITAL COURSE: Date of Admission:04/09/19 Pt is a 53 y/o F with a significant past medical history of HTN who presented to [facility] at the behest of her PMD due to severely elevated blood pressure(190/ 110). Pt stated that this past Friday she began to experience an episode of dizziness w/ associated nausea and vomiting. Pt stated she was in her home when this episode occurred. Pt went to rest and woke up shortly afterwards and still was experiencing dizziness. Pt states she has been prescribed antihypertensive medications in the past however did not want to take them as she "worried about the side-effects of the medications". Patient denied chest pain, shortness of breath, LOC, or illicit drug use. Patient was admitted for the control of this hypertension. Cardio was consulted. Neurology was consulted. The patient was placed on a cardene drip and was quickly titrated off after receiving PO medications. The patient's BP was controlled with Coreg, hydralazine and diovan. Lipitor and asa 81 were also started. The patient's BP remained under control with the above medications and she was discharged home on them with cardiology follow up. Date of Discharge: 04/11/19 Minutes to complete discharge: 44 Discharge Summary Reason For Visit: HYPERTENSIVE EMERGENCY Current Active Problems CKD (chronic kidney disease) (Acute) Hypertensive emergency (Acute) Hypertensive encephalopathy (Acute) Hypertensive heart disease (Acute) Hypertensive urgency (Acute) Condition: Improved - Instructions Diet, Activity, Other Instructions: You were admitted for the treatment of your high blood pressure. We are sending you home with some medications to help bring the blood pressure down. Please take Carvedilol (Coreg) 12.5mg twice per day Please take Hydralazine (alprazoline) 50mg Three times per day Please take losartan (Diovan) 160mg twice per day We are sending you home with a medication to help lower your cholesterol. Please take 40mg lipitor at bedtime. We are sending you home on a daily baby aspirin to help prevent strokes. Please take 81mg daily. Please follow up with your primary care physician within one week of discharge home. Please follow up with a heart doctor within one week of discharge home. A referral for Dr. Harkins has been included in your discharge paperwork. Please follow a diet low in fat and salt to help keep your blood pressure down. If you begin to experience chest pain, shortness of breath, blurred vision or if any of your symptoms get worse, please call your doctor or return to the emergency department. Referrals: Александр Harkins MD [Staff Physician] - Disposition: HOME - Home Medications Comprehensive Discharge Medication List: Ambulatory Orders Aspirin Coated [Ecotrin -] 81 mg PO DAILY #30 tablet.ec 04/11/19 Atorvastatin Ca [Lipitor] 40 mg PO HS #30 tablet 04/11/19 Carvedilol [Coreg -] 12.5 mg PO BID #60 tablet 04/11/19 Valsartan [Diovan] 160 mg PO BID #30 tablet 04/11/19 hydrALAZINE HCL [Apresoline -] 50 mg PO TID #90 tablet 04/11/19 This patient is new to me today: Yes Date on this admission: 04/11/19 Emergency Visit: Yes ED Registration Date: 04/09/19 Care time: The patient presented to the Emergency Department on the above date and was hospitalized for further evaluation of their emergent condition. Critical Care patient: No - Discharge Referral Referred to [facility] No
[2019-04-11 13:58] VITALS: TEMP 98.4
[2019-04-11 14:16] VITALS: BP 160/91; PULSE 78
== END 2019-04-11 14:48 | disposition home or self-care (01) | DRG 305 ==
LOC: JER 15:47 → JICU 17:56 → J5S 04-10 13:42
PROVIDERS: ADMIT Internal Medicine; ATTEND Internal Medicine
DX: I16.1 Hypertensive emergency (principal); I67.4 Hypertensive encephalopathy; Z91.14 Patient's other noncompliance with medication regimen; I12.9 Hypertensive chronic kidney disease with stage 1 through stage 4 chronic kidney disease, or unspecified chronic kidney disease; N18.2 Chronic kidney disease, stage 2 (mild)
CPT/HCPCS: 36415; 70450-TC; 70551-TC; 80053; 81003; 82570; 83735; 84100; 84156; 84443; 84484; 85025; 85027; 93005; 93010; 99284-25; J1644

== ENCOUNTER 2023-12-15 17:09 | Emergency (ER) | payer BC, OTHER ==
[2023-12-15 17:42] VITALS: RESP 18; TEMP 98.4; BMI 21.1
[2023-12-15] MEDS ORDERED: ACETAMINOPHEN INJECTION 100 ML IVPB ONE (18:52)
[2023-12-15] MEDS ORDERED: METOCLOPRAMIDE HCL 10 MG TABLET (FP) PO ONE (18:52)
[2023-12-15] MEDS ORDERED: METOCLOPRAMIDE HCL INJECTION 10 MG/2 ML VIAL ONE (18:57)
[2023-12-15] MEDS: ACETAMINOPHEN 1000 MG/100 ML BAG IVPB ONE (19:06)
[2023-12-15] MEDS: METOCLOPRAMIDE HCL INJECTION 10 MG/2 ML VIAL IVPB ONE (19:06)
[2023-12-15] MEDS: SODIUM CHLORIDE 0.9% 500 ML INFUS.BAG IV ONE (19:06)
[2023-12-15 21:24] VITALS: BP 132/78; PULSE 88
== END 2023-12-15 21:24 | disposition home or self-care (01) ==
LOC: JER 17:09
PROC: 0HQ1XZZ Repair Face Skin, External Approach (ICD-10-PCS; principal; 2023-12-15)
PROC: 3E033NZ Introduction of Analgesics, Hypnotics, Sedatives into Peripheral Vein, Percutaneous Approach (ICD-10-PCS; 2023-12-15)
PROC: 3E033GC Introduction of Other Therapeutic Substance into Peripheral Vein, Percutaneous Approach (ICD-10-PCS; 2023-12-15)
DX: R51.9 Headache, unspecified (principal); M54.2 Cervicalgia; S01.81XA Laceration without foreign body of other part of head, initial encounter; W19.XXXA Unspecified fall, initial encounter
CPT/HCPCS: 70450-TC; 72125-TC; 99284-25; J0131